=== PATIENT | female | born 1990 | race Caucasian/White ===

== ENCOUNTER 2017-08-16 22:14 | Emergency (ER) | payer BC ==
[2017-08-16] MEDS ORDERED: Lidocaine 1%* 5 ML VIAL INJ ONE (22:40)
--- NOTE | 2017-08-16 22:53 | ED ---
Laceration/Wound HPI - HPI Summary HPI Summary: 26-year-old female presents with left hand laceration today. She cut her hand while doing dishes. She states her immunizations are up-to-date. There is no active severe bleeding. She hasn't taken anything for her pain. She is in minimal amount of pain. She has full range of motion of her hand. She is right -handed. - History of Current Complaint Stated Complaint: LT HAND LAC Time Seen by Provider: 08/16/17 22:27 Hx Last Menstrual Period: now Pain Intensity: 0 - Allergy/Home Medications Allergies/Adverse Reactions: Allergies Allergy/AdvReac Type Severity Reaction Status Date / Time Bee Venom Allergy Unknown Verified 10/21/15 18:48 Reaction Details PMH/Surg Hx/FS Hx/Imm Hx Endocrine/Hematology History: Reports: Hx Diabetes - type 1, dx at age 16 Denies: Hx Thyroid Disease Respiratory History: Reports: Hx Asthma History: Denies: Hx Renal Disease Neurological History: Denies: Hx Seizures - Surgical History Surgery Procedure, Year, and Place: rt knee surgeries X4, appy, wisdom teeth extraction, ankle surgery - Immunization History Date of Tetanus Vaccine: utd Date of Influenza Vaccine: utd Infectious Disease History: No Infectious Disease History: Denies: Traveled Outside the [place] in Last 30 Days - Family History Known Family History: Positive: None - Social History Alcohol Use: Weekly Substance Use Type: Reports: None Smoking Status (MU): Never Smoked Tobacco Review of Systems Negative: Fever Negative: Chest Pain Negative: Shortness Of Breath Positive: Other - laceration left hand All Other Systems Reviewed And Are Negative: Yes Physical Exam Triage Information Reviewed: Yes Vital Signs On Initial Exam: Initial Vitals Temp Pulse Resp BP Pulse Ox 98.7 F 97 16 122/72 100 08/16/17 22:22 08/16/17 22:22 08/16/17 22:22 08/16/17 22:22 08/16/17 22:22 Vital Signs Reviewed: Yes Appearance: Positive: Well-Appearing Skin: Positive: Warm, Dry, Other - 3cm by 1/2cm on left dorsal aspect of left hand Head/Face: Positive: Normal Head/Face Inspection Eyes: Positive: Normal, EOMI, YUE, Conjunctiva Clear Respiratory/Lung Sounds: Positive: Clear to Auscultation, Breath Sounds Present Cardiovascular: Positive: Normal, RRR Musculoskeletal: Positive: Strength/ROM Intact - left hand, Other - good pulses , capillary refill<2 secs Neurological: Positive: Normal Psychiatric: Positive: Normal Procedures - Laceration/Wound Repair 1 Location: Other - left hand Description: Stellate Anesthesia: Local, 1.0% Length, Depth and Shape: 3cm by 1/2cm Betadine Prep?: Yes Irrigated w/ Saline (ccs): 100 Laceration/Wound Explored: clean, no foreign body removed Closure: Single Layer Suture Type: Prolene - 4-0 Number of Sutures: 3 Layer Closure?: No Sterile Dressing Applied?: No Diagnostics - Vital Signs Vital Signs Temp Pulse Resp BP Pulse Ox 08/16/17 22:22 98.7 F 97 16 122/72 100 - Laboratory Lab Statement: Any lab studies that have been ordered have been reviewed, and results considered in the medical decision making process. Laceration Repair Course/Dx - Course Course Of Treatment: 26-year-old female presents with left hand laceration today. She cut her hand while doing dishes. She states her immunizations are up-to-date. There is no active severe bleeding. She hasn't taken anything for her pain. She is in minimal amount of pain. She has full range of motion of her hand. She is right-handed. On exam she has a 3 cm by half a centimeter laceration on the dorsal aspect of the left hand. clean wound and place 3 suture. Patient understands and agrees with plan. - Differential Dx Differental Diagnoses: Abrasion, Avulsion, Laceration - Clinical Impression Provider Diagnoses: Laceration of left hand Discharge - Discharge Plan Condition: Good Disposition: HOME Patient Education Materials: Care For Your Stitches (ED) Referrals: No Primary Care Phys,NOPCP [Primary Care Provider] - Additional Instructions: Take Tylenol or ibuprofen for pain Keep area clean and dry for 24 hours Return to ED or primary in 10-14 days to have sutures removed Return to ED if develop signs of infection such as fever, spreading redness, or pus.
[2017-08-16 23:23] VITALS: BP 110/70
== END 2017-08-16 23:22 | disposition home or self-care (01) ==
LOC: ED 22:14
DX: S61.412A Laceration without foreign body of left hand, initial encounter (principal); W26.0XXA Contact with knife, initial encounter; Y93.G1 Activity, food preparation and clean up; Y92.9 Unspecified place or not applicable
CPT/HCPCS: 12002; 99282

== ENCOUNTER 2017-10-14 14:27 | Emergency (ER) | payer BC ==
[2017-10-14 15:37] LABS: Urine Appearance Clear; Urine Blood Negative (Negative); Urine Color Yellow; Urine Ketones Negative (Negative); Urine Protein 1+(30 mg/dL) (Negative); Urine Specific Gravity 1.008 (1.010-1.030); Urine Urobilinogen Negative (Negative)
[2017-10-14 16:04] LABS: ABS Basophils 0.1 10^3/ul (0-0.2); ABS Eosinophils 0.1 10^3/ul (0-0.6); ABS Lymphocytes 1.4 10^3/ul (1.0-4.8); ABS Monocytes 0.5 10^3/ul (0-0.8); ABS Neutrophils 3.1 10^3/ul (1.5-7.7); ABS Nucleated RBC 0 10^3/ul; Eosinophil % 1.8 % (0-6); Hematocrit 41 % (35-47); Hemoglobin 14.1 g/dl (12.0-16.0); Lymphocyte % 27.3 % (25-47); Mean Corpuscular HGB Conc 34 g/dl (31-36); Mean Corpuscular Hemoglobin 31 pg (27-31); Mean Corpuscular Volume 91 fL (80-97); Mean Platelet Volume 7.3 um3 (7.4-10.4); Nucleated Red Blood Cells % 0; Platelet Count 286 10^3/ul (150-450); Red Blood Count 4.54 10^6/ul (4.0-5.4); Red Cell Distribution Width 13 % (10.5-15); White Blood Count 5.1 10^3/ul (3.5-10.8)
[2017-10-14 17:37] VITALS: BP 130/83
--- NOTE | 2017-10-17 15:05 | ED ---
Scottie Hoffman Stephanie, scribed for Edward Simpson MD on 10/14/17 at 1448 . Psychiatric Complaint - HPI Summary HPI Summary: The pt is a 26 y/o F presenting to the ED with c/o depression that began on 10/12. The pt states she was BIB police due to a phone call possibly by her boss. The pt states she miscarriaged her 34 week old fetus 2 days ago. She denies SI/ HI and states "I am just having a rough time". Per sales promotion officer, the pt called out of work today because she had just had a miscarriage. The officer states he was told that the pt was with twins and lost one of the fetuses a few months ago and fell today and miscarriage the other fetus. 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 - History Of Current Complaint Chief Complaint: EDMentalHealth Time Seen by Provider: 10/14/17 14:35 Hx Obtained From: Patient Hx Last Menstrual Period: now ?: No Onset/Duration: Gradual Onset, Lasting Days - 2, Still Present Timing: Constant Severity Currently: Mild Character: Depressed Aggravating Factor(s): Recent Stress - miscarriage Alleviating Factor(s): Nothing Has Suicidal: Denies: Thoughts Has Homicidal: Denies: Thoughts - Allergies/Home Medications Allergies/Adverse Reactions: Allergies Allergy/AdvReac Type Severity Reaction Status Date / Time bee venom protein (honey bee) Allergy Anaphylatic Verified 10/14/17 14:31 Shock Home Medications: Home Medications Adapalene/Benzoyl Peroxide [Epiduo Forte 0.3-2.5 %] 1 grams TOPICAL DAILY [History Confirmed 10/14/17] Albuterol HFA INHALER* [Ventolin HFA Inhaler*] 1 puff INH Q4H PRN 10/14/17 [ History Confirmed 10/14/17] Cetirizine* [ZyrTEC 10 MG TAB*] 10 mg PO DAILY 10/14/17 [History Confirmed 10/14] DextroAMPHETamine ER (NF) 5 mg PO DAILY MDD 1 tablet 10/14/17 [History Confirmed 10/14/17] Dextroamphetamine ER (NF) 30 mg PO DAILY MDD 1 tablet 10/14/17 [History Confirmed 10/14/17] Fluticasone NASAL SPRAY 50MCG* [Flonase NASAL SPRAY 50MCG*] 2 spray BOTH NARES DAILY 10/14/17 [History Confirmed 10/14/17] Insulin Detemir (NF) [Levemir (NF)] 25 unit SUBCUT QPM 10/14/17 [History Confirmed 10/14/17] Insulin LISPRO* [HumaLOG*] 0 units SUBCUT DIRECTED 10/14/17 [History Confirmed 10/14/17] PMH/Surg Hx/FS Hx/Imm Hx Endocrine/Hematology History: Reports: Hx Diabetes - type 1, dx at age 16 Denies: Hx Thyroid Disease Respiratory History: Reports: Hx Asthma History: Denies: Hx Renal Disease Neurological History: Denies: Hx Seizures - Surgical History Surgery Procedure, Year, and Place: rt knee surgeries X4, appy, wisdom teeth extraction, ankle surgery - Immunization History Date of Tetanus Vaccine: utd Date of Influenza Vaccine: utd Infectious Disease History: No Infectious Disease History: Denies: Traveled Outside the [place] in Last 30 Days - Family History Known Family History: Positive: Unknown - The pt denies all fhx. - Social History Occupation: Employed Part-time Lives: Alone Alcohol Use: Weekly Hx Substance Use: No Substance Use Type: Reports: None Smoking Status (MU): Never Smoked Tobacco Review of Systems Negative: Fever, Chills Negative: Erythema Negative: Sore Throat Negative: Chest Pain Negative: Shortness Of Breath, Cough Negative: Abdominal Pain, Vomiting, Nausea Negative: dysuria, hematuria Negative: Myalgia, Edema Negative: Rash Neurological: Other - Negative: depressed Positive: Depressed All Other Systems Reviewed And Are Negative: Yes Physical Exam - Summary Physical Exam Summary: Constitutional: Well-developed, Well-nourished, Alert. (-) Distressed Skin: Warm, Dry HENT: Normocephalic; Atraumatic Eyes: Conjunctiva normal Neck: Musculoskeletal ROM normal neck. (-) JVD, (-) Stridor, (-) Tracheal deviation Cardio: Rhythm regular, rate normal, Heart sounds normal; Intact distal pulses; The pedal pulses are 2+ and symmetric. Radial pulses are 2+ and symmetric. (-) Murmur Pulmonary/Chest wall: Effort normal. (-) Respiratory distress, (-) Wheezes, (-) Rales Abd: Soft, (-) Tenderness, (-) Distension, (-) Guarding, (-) Rebound Musculoskeletal: (-) Edema Lymph: (-) Cervical adenopathy Neuro: Alert, Oriented x3 Psych: Affect somewhat flat Triage Information Reviewed: Yes Vital Signs On Initial Exam: Initial Vitals Temp Pulse Resp BP Pulse Ox 98.0 F 107 16 123/79 98 10/14/17 14:31 10/14/17 14:31 10/14/17 14:31 10/14/17 14:31 10/14/17 14:31 Vital Signs Reviewed: Yes Diagnostics - Vital Signs Vital Signs Temp Pulse Resp BP Pulse Ox 10/14/17 14:31 98.0 F 107 16 123/79 98 - Laboratory Lab Results: Lab Results 10/14/17 10/14/17 10/14/17 Range/Units 15:00 15:00 15:57 WBC (3.5-10.8) 10^3/ul RBC (4.0-5.4) 10^6/ul Hgb (12.0-16.0) g/dl Hct (35-47) % MCV (80-97) fL MCH (27-31) pg MCHC (31-36) g/dl RDW (10.5-15) % Plt Count (150-450) 10^3/ul MPV (7.4-10.4) um3 Neut % (Auto) (38-83) % Lymph % (Auto) (25-47) % Bracken % (Auto) (0-7) % Eos % (Auto) (0-6) % Baso % (Auto) (0-2) % Absolute Neuts (auto) (1.5-7.7) 10^3/ul Absolute Lymphs (auto) (1.0-4.8) 10^3/ul Absolute Monos (auto) (0-0.8) 10^3/ul Absolute Eos (auto) (0-0.6) 10^3/ul Absolute Basos (auto) (0-0.2) 10^3/ul Absolute Nucleated RBC 10^3/ul Nucleated RBC % Sodium 138 L (139-145) mmol/L Potassium 4.5 (3.5-5.0) mmol/L Chloride 104 (101-111) mmol/L Carbon Dioxide 24 (22-32) mmol/L Anion Gap 10 (2-11) mmol/L BUN 7 (6-24) mg/dL Creatinine 0.82 (0.51-0.95) mg/dL Est GFR ( Amer) 106.8 (>60) Est GFR (Non-Af Amer) 83.0 (>60) BUN/Creatinine Ratio 8.5 (8-20) Glucose 91 (70-100) mg/dL Calcium 9.7 (8.6-10.3) mg/dL Total Bilirubin 0.50 (0.2-1.0) mg/dL AST 16 (13-39) U/L ALT 14 (7-52) U/L Alkaline Phosphatase 51 (34-104) U/L Total Protein 7.7 (6.4-8.9) g/dL Albumin 4.3 (3.2-5.2) g/dL Globulin 3.4 (2-4) g/dL Albumin/Globulin Ratio 1.3 (1-3) TSH 1.62 (0.34-5.60) mcIU/mL Beta HCG, Quant < 0.60 mIU/mL Urine Color Yellow Urine Appearance Clear Urine pH 6.0 (5-9) Ur Specific [place] 1.008 L (1.010-1.030) Urine Protein 1+(30 mg/dl) A (Negative) Urine Ketones Negative (Negative) Urine Blood Negative (Negative) Urine Nitrate Negative (Negative) Urine Bilirubin Negative (Negative) Urine Urobilinogen Negative (Negative) Ur Leukocyte Esterase Negative (Negative) Urine WBC (Auto) Trace(0-5/hpf) (Absent) Urine RBC (Auto) Absent (Absent) Ur Squamous Epith Cells Present A (Absent) Urine Bacteria 1+ A (Absent) Urine Glucose Negative (Negative) Salicylates < 2.50 (<30) mg/dL Urine Opiates Screen None detected (None Detect) Acetaminophen < 15 mcg/mL Ur Barbiturates Screen None detected (None Detect) Ur Phencyclidine Scrn None detected (None Detect) Ur Amphetamines Screen Presumptive positive A (None Detect) U Benzodiazepines Scrn None detected (None Detect) Urine Cocaine Screen None detected (None Detect) U Cannabinoids Screen None detected (None Detect) Serum Alcohol 42 H (<10) mg/dL 03/27/18 Range/Units 15:57 WBC 5.1 (3.5-10.8) 10^3/ul RBC 4.54 (4.0-5.4) 10^6/ul Hgb 14.1 (12.0-16.0) g/dl Hct 41 (35-47) % MCV 91 (80-97) fL MCH 31 (27-31) pg MCHC 34 (31-36) g/dl RDW 13 (10.5-15) % Plt Count 286 (150-450) 10^3/ul MPV 7.3 L (7.4-10.4) um3 Neut % (Auto) 60.0 (38-83) % Lymph % (Auto) 27.3 (25-47) % Bracken % (Auto) 9.7 H (0-7) % Eos % (Auto) 1.8 (0-6) % Baso % (Auto) 1.2 (0-2) % Absolute Neuts (auto) 3.1 (1.5-7.7) 10^3/ul Absolute Lymphs (auto) 1.4 (1.0-4.8) 10^3/ul Absolute Monos (auto) 0.5 (0-0.8) 10^3/ul Absolute Eos (auto) 0.1 (0-0.6) 10^3/ul Absolute Basos (auto) 0.1 (0-0.2) 10^3/ul Absolute Nucleated RBC 0 10^3/ul Nucleated RBC % 0 Sodium (139-145) mmol/L Potassium (3.5-5.0) mmol/L Chloride (101-111) mmol/L Carbon Dioxide (22-32) mmol/L Anion Gap (2-11) mmol/L BUN (6-24) mg/dL Creatinine (0.51-0.95) mg/dL Est GFR ( Amer) (>60) Est GFR (Non-Af Amer) (>60) BUN/Creatinine Ratio (8-20) Glucose (70-100) mg/dL Calcium (8.6-10.3) mg/dL Total Bilirubin (0.2-1.0) mg/dL AST (13-39) U/L ALT (7-52) U/L Alkaline Phosphatase (34-104) U/L Total Protein (6.4-8.9) g/dL Albumin (3.2-5.2) g/dL Globulin (2-4) g/dL Albumin/Globulin Ratio (1-3) TSH (0.34-5.60) mcIU/mL Beta HCG, Quant mIU/mL Urine Color Urine Appearance Urine pH (5-9) Ur Specific [place] (1.010-1.030) Urine Protein (Negative) Urine Ketones (Negative) Urine Blood (Negative) Urine Nitrate (Negative) Urine Bilirubin (Negative) Urine Urobilinogen (Negative) Ur Leukocyte Esterase (Negative) Urine WBC (Auto) (Absent) Urine RBC (Auto) (Absent) Ur Squamous Epith Cells (Absent) Urine Bacteria (Absent) Urine Glucose (Negative) Salicylates (<30) mg/dL Urine Opiates Screen (None Detect) Acetaminophen mcg/mL Ur Barbiturates Screen (None Detect) Ur Phencyclidine Scrn (None Detect) Ur Amphetamines Screen (None Detect) U Benzodiazepines Scrn (None Detect) Urine Cocaine Screen (None Detect) U Cannabinoids Screen (None Detect) Serum Alcohol (<10) mg/dL Result Diagrams: 10/14/17 15:57 10/14/17 15:57 Lab Statement: Any lab studies that have been ordered have been reviewed, and results considered in the medical decision making process. Course/Dx - Course Course Of Treatment: The pt will undergo MHE. There is no evidence of peripartum complication or active bleeding. The patient's history of recent miscarriage is variable and hard to follow, telling me that she miscarried two weeks ago, then also referring to two days ago. - Differential Dx/Clinical Impression Provider Diagnosis: Grief reaction Discharge - Sign-Out/Discharge Documenting (check all that apply): Discharge - Discharge Plan Condition: Stable Disposition: HOME Patient Education Materials: Depression (ED), Grief and Loss (ED) Referrals: family,childrens [Other] (please follow up with therapy services as soon as possible. ) Kerri Mack CATH LAB MANAGER [Nurse Practitioner] - Additional Instructions: RETURN TO THE EMERGENCY DEPARTMENT FOR CHANGING OR WORSENING SYMPTOMS. - Billing Disposition and Condition Condition: STABLE Disposition: HOME The documentation as recorded by the Scottie aguilar Stephanie accurately reflects the service I personally performed and the decisions made by me, Edward Simpson MD.
== END 2017-10-14 17:39 | disposition home or self-care (01) ==
LOC: SUPCPDRO 14:27 → ED 14:27
DX: F43.21 Adjustment disorder with depressed mood (principal); Z32.02 Encounter for pregnancy test, result negative; E10.9 Type 1 diabetes mellitus without complications; Z79.4 Long term (current) use of insulin; J45.909 Unspecified asthma, uncomplicated
CPT/HCPCS: 36415; 80053; 80307; 80320; 80329; 81003; 81015; 84443; 84702; 85025; 87086; 99284; G0480

== ENCOUNTER 2018-01-29 18:47 | Inpatient (IN) | payer BC ==
[2018-01-29] MEDS ORDERED: Albuterol (2.5 MG) 0.5 % CONC 2.5 MG/0.5 ML NEB.SOLN (ICU and ED only) INH ONE (18:56)
[2018-01-29] MEDS ORDERED: EPINEPHrine,Rac 2.25% NEB.SOL* 0.5 ML ONE (18:56)
[2018-01-29] MEDS ORDERED: Albuterol 2.5 MG/3 ML NEB.SOL* (0.083%) INH ONE ×2 (18:57→19:40)
[2018-01-29] MEDS ORDERED: EPHEDrine (Pressors)* 50 MG/ML VIAL ONE (19:06)
[2018-01-29] MEDS ORDERED: EPINEPHRINE 1 MG/ML 1 ML VIAL ONE (19:06)
[2018-01-29] MEDS ORDERED: EPINEPHrine SYR 0.1 MG/ML* (1:10,000) SYRINGE ONE (19:07)
--- NOTE | 2018-01-29 19:09 | ED ---
Allergic Reaction/Systemic - HPI Summary HPI Summary: Pt is a 27 y/o F presenting w/ an allergic reaction to a bee sting. While grabbing her the leash of her roommate's dog from a [place]avez, she was stung just above her right wrist. Per triage, this occurred around 13 minutes prior to arrival at hospital. Pt gave herself an epi pen but is still having stridor in the room. She denies the presence of hives and abdominal pain. - History of Current Complaint Chief Complaint: EDAllergicReaction Hx Obtained From: Patient Hx Last Menstrual Period: now Onset/Duration: Sudden Onset, Started minutes ago, Still Present Timing: Constant - Allergies/Home Medications Allergies/Adverse Reactions: Allergies Allergy/AdvReac Type Severity Reaction Status Date / Time bee venom protein (honey bee) Allergy Anaphylatic Verified 10/14/17 14:31 Shock PMH/Surg Hx/FS Hx/Imm Hx Endocrine/Hematology History: Reports: Hx Diabetes - type 1, dx at age 16 Denies: Hx Thyroid Disease Respiratory History: Reports: Hx Asthma History: Denies: Hx Renal Disease Neurological History: Denies: Hx Seizures Psychiatric History: Reports: Hx Eating Disorder - anorexic age [age] Denies: Hx of Violent Episodes Against Others - Surgical History Surgery Procedure, Year, and Place: rt knee surgeries X4, appy, wisdom teeth extraction, ankle surgery - Immunization History Date of Tetanus Vaccine: utd Date of Influenza Vaccine: utd Infectious Disease History: No Infectious Disease History: Denies: Traveled Outside the [place] in Last 30 Days - Family History Known Family History: Positive: None, Unknown - The pt denies all fhx. - Social History Alcohol Use: Weekly Hx Substance Use: No Substance Use Type: Reports: None Substance Use Comment - Amount & Last Used: adderal Smoking Status (MU): Never Smoked Tobacco Discharge - Discharge Plan Referrals: No Primary Care Phys,NOPCP [Primary Care Provider] -
[2018-01-29] MEDS ORDERED: EPINEPHrine AMP 1 MG/ML* 1 MG in D5W 250 ML BAG* 250 ML IVPB SCH (19:15)
--- NOTE | 2018-01-29 19:22 | ED ---
Allergic Reaction/Systemic - HPI Summary HPI Summary: Pt is a 27 y/o F presenting w/ an allergic reaction to a bee sting. While grabbing the leash of her roommate's dog from a [place], she was stung just above her right wrist. Per triage, this occurred around 13 minutes prior to arrival at hospital. Pt gave herself an epi pen but is still having stridor in the room. She notes that she has had similar reactions to bee stings previously and to her recollection the most recent episode was around a decade ago. Bruising is present on face across bridge of nose and jaw line. Pt currently denies the presence of hives and abdominal pain. Circular bruising is present on her back but pt believes this is from cupping therapy. - History of Current Complaint Chief Complaint: EDAllergicReaction Hx Obtained From: Patient Hx Last Menstrual Period: now Onset/Duration: Sudden Onset, Started minutes ago - per triage, 13 minutes prior to arrival, Still Present Timing: Constant Associated Signs And Symptoms: Positive: Difficulty Breathing, Other: - POSITIVE : Circular bruises on back, pt believes from cupping therapy. Bruising is present on face across bridge of nose and jaw line. NEGATIVE: hives. Negative: Abdominal Pain - Related Hx Possible Reaction To: Insect - bee sting - Allergies/Home Medications Allergies/Adverse Reactions: Allergies Allergy/AdvReac Type Severity Reaction Status Date / Time bee venom protein (honey bee) Allergy Anaphylatic Verified 10/14/17 14:31 Shock Home Medications: Home Medications Albuterol inh POWDER (NF) [Proair Respiclick] 1 puff INH Q4HR PRN 01/29/18 [ History Confirmed 01/29/18] Escitalopram (NF) [Lexapro 10 mg (NF)] 10 mg PO DAILY 01/29/18 [History Confirmed 01/29/18] Montelukast Sodium TAB* [Singulair TAB*] 10 mg PO DAILY 01/29/18 [History Confirmed 01/29/18] PMH/Surg Hx/FS Hx/Imm Hx Endocrine/Hematology History: Reports: Hx Diabetes - type 1, dx at age 16 Denies: Hx Thyroid Disease Respiratory History: Reports: Hx Asthma History: Denies: Hx Renal Disease Neurological History: Denies: Hx Seizures Psychiatric History: Reports: Hx Eating Disorder - anorexic age [age] Denies: Hx of Violent Episodes Against Others - Surgical History Surgery Procedure, Year, and Place: rt knee surgeries X4, appy, wisdom teeth extraction, ankle surgery - Immunization History Date of Tetanus Vaccine: utd Date of Influenza Vaccine: utd Infectious Disease History: No Infectious Disease History: Denies: Traveled Outside the [place] in Last 30 Days - Family History Known Family History: Positive: None, Unknown - The pt denies all fhx. Negative: Blood Disorder - Social History Alcohol Use: Weekly Hx Substance Use: No Substance Use Type: Reports: None Substance Use Comment - Amount & Last Used: adderal Smoking Status (MU): Never Smoked Tobacco Review of Systems Positive: Shortness Of Breath Negative: Abdominal Pain Positive: Bruising - Bruising is present on face across bridge of nose and jaw line. Circular bruises on back, pt believes from cupping therapy, Other - NEGATIVE: hives All Other Systems Reviewed And Are Negative: Yes Physical Exam - Summary Physical Exam Summary: Appearance: Well developed, well nourished white female lying on the stretcher in respiratory distress with audible stridor. Skin: Warm, dry, no obvious rash, no significant local reaction at the site of the sting. Eyes: sclera anicteric, no conjunctival pallor ENT: mucous membranes moist, pharynx appears normal, there is no swelling about the face or visible pharynx. There is periorbital bruising which pt says is from a rugby match. Neck: Supple, nontender Respiratory: Experiencing stridor and suprasternal retractions. no wheezing. Cardiovascular: Normal S1, S2. No murmurs. Normal distal pulses in tibial and radial bilaterally. Abdomen: Soft, nontender, normal active bowel sounds present Musculoskeletal: Normal, Strength/ROM Intact Neurological: A&Ox3, awake and alert, mentation is normal, speech is fluent and appropriate Psychiatric: affect is normal, does not appear anxious or depressed. She actually is tolerating her distress in good spirits, able to make jokes with staff and her roommate. Triage Information Reviewed: Yes Vital Signs On Initial Exam: Initial Vitals Pulse Resp BP Pulse Ox 99 40 133/86 99 01/29/18 18:55 01/29/18 18:55 01/29/18 18:55 01/29/18 18:55 Vital Signs Reviewed: Yes Diagnostics - Vital Signs Vital Signs Pulse Resp BP Pulse Ox 01/29/18 19:16 99 20 134/87 100 01/29/18 19:00 104 23 100 01/29/18 18:55 99 40 133/86 99 - Laboratory Result Diagrams: 01/29/18 20:07 01/29/18 20:07 Lab Statement: Any lab studies that have been ordered have been reviewed, and results considered in the medical decision making process. - EKG 2030 Cardiac Rate: Tachycardia EKG Rhythm: Sinus Tachycardia EKG Interpretation: Rate of 100 BPM; ST 100, otherwise normal. Allergic Reaction Course/Dx - Diagnoses Differential Diagnosis/HQI/PQRI: Positive: Airway Obstruction, Anaphylaxis, Bronchospasm Provider Diagnoses: Anaphylaxis due to hymenoptera venom - Provider Notifications Discussed Care Of Patient With: Rai Hopkins Time Discussed With Above Provider: 20:04 Instructed by Provider To: Admit As Inpatient - Critical Care Time Critical Care Time: 30-74 min - Pt presented with respiratory distress due to allergic reaction to wasp sting. She was markedly stridorous and required multiple parenteral medications to stabilize her condition, including IV epinephrine. Discharge - Sign-Out/Discharge Documenting (check all that apply): Patient Departure - Discharge Plan Condition: Guarded Disposition: ADMITTED TO [facility] - Billing Disposition and Condition Condition: GUARDED Disposition: Admitted to [facility]
[2018-01-29] MEDS ORDERED: EPINEPHrine AMP 1 MG/ML IM PRN (19:40)
[2018-01-29] MEDS ORDERED: methylPREDNISolone 125 MG* 2 ML VIAL IV ONE (19:40)
[2018-01-29] MEDS ORDERED: NS 0.9% 1000 ML* 3,000 ML IV ONE (19:40)
[2018-01-29] MEDS ORDERED: diPHENhydraMINE IV* 50 MG/ML 1 ml VIAL (BENADRYL) IV ONE (19:40)
[2018-01-29] MEDS ORDERED: EPINEPHrine,Rac 2.25% NEB.SOL* 0.5 ML INH ONE ×2 (19:44→21:05)
--- OUTSIDE RECORDS SUMMARY | 2018-01-29 20:11 | XMS REPORT ---
:1990 External Reference #:[id number] Author Organization [facility] Address [address] [place] [address] Phone [phone] Care Team Providers Name Role Phone Kerri Mack NP Care Team Information Javascript Developer Unavailable Payers Type Date Identification Numbers Payment Provider Subscriber Commercial Effective: Policy Number: [employer] Sarah Camacho 2016 [id number] Group Name: [employer] [address] [address] PayID: [id number] [place] [address] Problems Description No Information Family History Date Family Member(s) Problem(s) Comments Father trach and feeding tube Father Cancer, Throat In remission Mother Osteoporosis Paternal Grandfather due to AR () - in 50s Paternal Grandmother due to CHF (Congestive () - in her 80s. Failure) Morbid obesity Maternal Grandfather due to Cancer, Lung () - Smoker Maternal Grandmother due to Cancer, Ovarian () - In early 60s Aunt Cancer, Colon Social History Type Date Description Comments Lives With Roommate Sleep Typically sleeps 7 hours a night Sleep Reports continuity disturbances Smoke-Free Home is smoke-free Occupation Pediatric PT in [employer] Cigarette Use Never Smoked Cigarettes Recreational Drug Use Denies Drug Use Daily Caffeine Consumes on average 2 cups of coffee per day Enjoy Exercising Enjoys exercising Guns in Home No Currently Active Patient is currently sexually active Condom Use Always STD's No STD History Allergies, Adverse Reactions, Alerts Date Description Reaction Status Severity Comments 01/06/2017 Bee Sting active 10/03/2017 Cat Dander active Medications Medication Date Status Form Strength Qnty SIG Indications Ordering Provider Asmanex HFA 01/09 Active Aerosol 100mcg/Ac 13gm inhale 2 puffs t by mouth 2 Shortle, times per day BUDGET ENGINEER while ill Proair HFA 11/11 Active Aerosol 108(90Bas 8.500 2 puffs as J45.998 e) gm needed every 4 Shortle, mcg/Act to 6 hrs. BUDGET ENGINEER Lexapro 11/11 Active Tablets 10mg 30tab 1/2 tab by F41.9 s mouth daily for R. Storm, one week. then CREDIT ANALYSIS MANAGER-C 1 tab by mouth daily Epipen 2-Ti 02/04 Active Solution 0.3mg/0.3 2Pack use as directed Auto-Inject ML LAKSHMI Her-C Epinephrine 02/04 Active Solution 0.3mg/0.3 2unit inject at onset Auto-Inject ML s of allergic Taina reaction, then CREDIT ANALYSIS MANAGER-C go to the er Levemir 01/10 Active Solution 100Unit/M 30ml inject 15 units Joanna Flextouch Pen-Inject L qd LAKSHMI Her-C Adderall XR 01/06 Active Caps ER 30mg 30cap 1 by mouth 24HR s daily for add R. Storm, CREDIT ANALYSIS MANAGER-C Adderall XR 01/06 Active Caps ER 5mg 30cap 1 by mouth 24HR s every day for R. Storm, adhd CREDIT ANALYSIS MANAGER-C Zyrtec 01/06 Active Capsules 10mg 1 po qd Allergy LIYAH HerP-C Fluticasone 01/06 Active Suspension 50mcg/Act 48gm 2 sprays each Joanna Propionate nostril daily LIYAH HerP-C Albuterol 01/06 Active Nebulizer (2.5mg/3M 75uni inhale the Sulfate L) 0.083% ts contents of 1 Taina vial via CREDIT ANALYSIS MANAGER-C nebulizer every 4 to 6 hours as needed for wheezing Novolog 01/06 Active Solution 100Unit/M 1box use per carb Joanna Flexpen Pen-Inject L ratio 1unit for Taina, 11 grams CREDIT ANALYSIS MANAGER-C correction factor under the skin three times a day per sliding scale. Singulair 01/06 Active Tablets 10mg 30tab 1 by mouth s every day LOUIE Mack Epiduo Forte 01/06 Active Gel 0.3-2.5% 45gm apply once daily to skin Taina [facility] Acticlate 01/06 Active Tablets 75mg 30tab 1 tab by mouth s every day LOUIE Mack Flovent HFA 01/09 Hx Aerosol 110mcg/Ac 12gm inhale twice t daily while [place], - having BUDGET ENGINEER 01/09 exacerbation Ranitidine 03/12 Hx Tablets 150mg 60tab take one tablet L50.8 Joanna HCL s by mouth twice Taian, - a day as [facility] 10/03 directed for acid reflux Trazodone 01/10 Hx Tablets 50mg 60tab take one to two Joanna HCL s tablets by Taina, - mouth at [facility] 01/05 bedtime Levemir 01/10 Hx Solution 100Unit/M inject Joanna Pen-Inject L subcutaneously Taina, - 15 units daily [facility] 01/10 Breo Ellipta 01/06 Hx Aerosol 200-25mcg 60uni inhale 1 puff /Inh ts by mouth every Taina, - day - rinse [facility] 10/03 mouth after Levemir 01/06 Hx Solution 100Unit/M 15ml 25 units in at L night Taina, - CREDIT ANALYSIS MANAGER-C 01/10 Trazodone 01/06 Hx Tablets 100mg Joanna HCL /2016 Taina, - CREDIT ANALYSIS MANAGER-C 01/10 Medications Administered in Office Medication Date Status Form Strength Qnty SIG Indications Ordering Provider TB,Intradermal Administered Injection Kerri (PPD, Mantoux) 018 LOUIE Mack Immunizations CPT Code Status Date Vaccine Lot # [id number] Given 01/05/2018 MMR (Measles,Mumps,Rubella) [id number] Given 12/02/2017 MMR (Measles,Mumps,Rubella) [id number] Given 08/01/2017 Influenza Virus Vaccine, Quadrivalent, 3 Yr > Quad, Preserv Free [id number] Given 01/07/2016 Pneumovax 23 (PPSV23) 65+ years or high risk 2 to 64 year old Vital Signs Date Vital Result Comment 01/06/2018 Weight 151.00 lb Weight in kg's 68.494 BP Systolic 112 mmHg BP Diastolic 80 mmHg Heart Rate 102 /min Body Temperature 97.4 F Respiratory Rate 12 /min O2 % BldC Oximetry 98 % 01/05/2018 Weight 151.00 lb Weight in kg's 68.494 BP Systolic 118 mmHg BP Diastolic 78 mmHg Heart Rate 100 /min Body Temperature 97.4 F Respiratory Rate 18 /min O2 % BldC Oximetry 99 % 11/25/2017 Weight 146.00 lb Weight in kg's 66.226 BP Systolic 116 mmHg BP Diastolic 78 mmHg Heart Rate 91 /min Body Temperature 97.5 F Respiratory Rate 16 /min O2 % BldC Oximetry 98 % 11/11/2017 Weight 146.00 lb Weight in kg's 66.226 BP Systolic 102 mmHg BP Diastolic 60 mmHg Heart Rate 96 /min Body Temperature 97.3 F Respiratory Rate 16 /min 11/04/2017 Weight 146.00 lb Weight in kg's 66.226 BP Systolic 110 mmHg BP Diastolic 74 mmHg Heart Rate 104 /min Body Temperature 97.0 F Respiratory Rate 16 /min Height 65 inches 5'5" BMI (Body Mass Index) 24.3 kg/m2 10/03/2017 Weight 146.12 lb Weight in kg's 66.282 BP Systolic 130 mmHg BP Diastolic 70 mmHg Heart Rate 74 /min Body Temperature 97.6 F Respiratory Rate 16 /min O2 % BldC Oximetry 99 % 03/12/2017 Weight 153.00 lb Weight in kg's 69.401 BP Systolic 94 mmHg BP Diastolic 62 mmHg Heart Rate 81 /min Body Temperature 97.8 F Respiratory Rate 16 /min O2 % BldC Oximetry 98 % 02/04/2017 Weight 149.00 lb Weight in kg's 67.586 BP Systolic 100 mmHg BP Diastolic 70 mmHg Heart Rate 92 /min Body Temperature 98.2 F Height 65 inches 5'5" BMI (Body Mass Index) 24.8 kg/m2 01/06/2017 Weight 150.00 lb Weight in kg's 68.040 BP Systolic 100 mmHg BP Diastolic 60 mmHg Heart Rate 88 /min Height 65 inches 5'5" BMI (Body Mass Index) 25.0 kg/m2 Results Test Date Test Result H/L Range Note CBC Auto Diff 11/06/2017 White Blood Count 5.1 10^3/uL 3.5-10.8 Red Blood Count 4.42 10^6/uL 4.0-5.4 Hemoglobin 14.0 g/dL 12.0-16.0 Hematocrit 41 % 35-47 Mean Corpuscular Volume 94 fL 80-97 Mean Corpuscular Hemoglobin 32 pg High 27-31 Mean Corpuscular HGB Conc 34 g/dL 31-36 Red Cell Distribution Width 14 % 10.5-15 Platelet Count 312 10^3/uL 150-450 Mean Platelet Volume 7.8 um3 7.4-10.4 Abs Neutrophils 3.4 10^3/uL 1.5-7.7 Abs Lymphocytes 1.2 10^3/uL 1.0-4.8 Abs Monocytes 0.5 10^3/uL 0-0.8 Abs Eosinophils 0.1 10^3/uL 0-0.6 Abs Basophils 0 10^3/uL 0-0.2 Abs Nucleated RBC 0 10^3/uL Granulocyte % 65.5 % 38-83 Lymphocyte % 22.8 % Low 25-47 Monocyte % 9.7 % High 0-7 Eosinophil % 1.5 % 0-6 Basophil % 0.5 % 0-2 Nucleated Red Blood Cells % 0 Comp Metabolic Panel 11/06/2017 Sodium 137 mmol/L Low 139-145 Potassium 4.4 mmol/L 3.5-5.0 Chloride 101 mmol/L 101-111 Co2 Carbon Dioxide 28 mmol/L 22-32 Anion Gap 8 mmol/L 2-11 Glucose 104 mg/dL High 70-100 Blood Urea Nitrogen 16 mg/dL 6-24 Creatinine 0.79 mg/dL 0.51-0.95 BUN/Creatinine Ratio 20.3 High 8-20 Calcium 9.7 mg/dL 8.6-10.3 Total Protein 7.6 g/dL 6.4-8.9 Albumin 4.2 g/dL 3.2-5.2 Globulin 3.4 g/dL 2-4 Albumin/Globulin Ratio 1.2 1-3 Total Bilirubin 0.60 mg/dL 0.2-1.0 Alkaline Phosphatase 54 U/L 34-104 Alt 17 U/L 7-52 Ast 14 U/L 13-39 Egfr Non- 86.7 >60 Egfr 111.4 >60 1 Lipid Profile (Trig/Chol/HDL) 11/06/2017 Triglycerides 118 mg/dL 2 Cholesterol 216 mg/dL 3 HDL Cholesterol 73.4 mg/dL 4 LDL Cholesterol 119 mg/dL 5 Laboratory test finding 11/06/2017 Hemoglobin A1c (Glyco HGB) 4.7 % 4.0- 5.6 6 Mumps Igg 11/06/2017 Mumps Virus IgG Antibody Negative 7 Mumps IgG Antibody Index 0.8 8 Rubeola Measles Igg AB 11/06/2017 Rubeola (Measles) IgG Antibody Positive 9 Rubeola IgG Antibody Index 1.7 10 Laboratory test finding 11/06/2017 Rubella Screen Immune Immune 11 Hepatitis B Arnie AB Titer 11/06/2017 Hepatitis B Surface AB Immune Immune Hep B Surf AB Level > 1000.00 mIU/mL >12 Urine Microalbumin Random 11/04/2017 Ur Microalbumin (mg/L) < 15.0 mg/L Urine Creatinine 177.94 mg/dL Urine Microalbumin/Creatinine TNP ug/mg <31 12 Urine Culture And Sensitivities 10/14/2017 Urine Culture SEE RESULT BELOW 13 Urinalysis Profile 10/14/2017 Urine Color Yellow Urine Appearance Clear Urine Specific Raymond 1.008 Low 1.010-1.030 Urine pH 6.0 5-9 Urine Urobilinogen Negative Negative Urine Ketones Negative Negative Urine Protein 1+(30 mg/dL) Negative Urine Leukocytes Negative Negative Urine Blood Negative Negative Urine Nitrite Negative Negative Urine Bilirubin Negative Negative Urine Glucose Negative Negative Urine White Blood Cell Trace(0-5/hpf) Absent Urine Red Blood Cell Absent Absent Urine Bacteria 1+ Absent Urine Squamous Epithelial Cell Present Absent Urine Drug SCR 10/14/2017 Amphetamine Ur Screen Presumptive Posi None Detect 14 [facility] <SEE NOTE> Barbiturates Urine Screen None Detected None Detect Benzodiazepine Urine Screen None Detected None Detect Urine Cannabinoids Screen None Detected None Detect Urine Cocaine Screen None Detected None Detect Urine Opiates Screen None Detected None Detect Urine Phencyclidine Screen None Detected None Detect 15 CBC Auto Diff 03/12/2017 White Blood Count 7.2 10^3/uL 3.5-10.8 Red Blood Count 4.57 10^6/uL 4.0-5.4 Hemoglobin 14.2 g/dL 12.0-16.0 Hematocrit 42 % 35-47 Mean Corpuscular Volume 93 fL 80-97 Mean Corpuscular Hemoglobin 31 pg 27-31 Mean Corpuscular HGB Conc 34 g/dL 31-36 Red Cell Distribution Width 15 % 10.5-15 Platelet Count 303 10^3/uL 150-450 Mean Platelet Volume 8 um3 7.4-10.4 Abs Neutrophils 5.0 10^3/uL 1.5-7.7 Abs Lymphocytes 1.6 10^3/uL 1.0-4.8 Abs Monocytes 0.5 10^3/uL 0-0.8 Abs Eosinophils 0.1 10^3/uL 0-0.6 Abs Basophils 0 10^3/uL 0-0.2 Abs Nucleated RBC 0.01 10^3/uL Granulocyte % 69.0 % 38-83 Lymphocyte % 22.0 % Low 25-47 Monocyte % 7.4 % 1-9 Eosinophil % 1.1 % 0-6 Basophil % 0.5 % 0-2 Nucleated Red Blood Cells % 0.1 Comp Metabolic Panel 03/12/2017 Sodium 138 mmol/L 133-145 Potassium 4.7 mmol/L 3.5-5.0 Chloride 105 mmol/L 101-111 Co2 Carbon Dioxide 28 mmol/L 22-32 Anion Gap 5 mmol/L 2-11 Glucose 88 mg/dL 70-100 Blood Urea Nitrogen 10 mg/dL 6-24 Creatinine 0.80 mg/dL 0.51-0.95 BUN/Creatinine Ratio 12.5 8-20 Calcium 10.2 mg/dL 8.6-10.3 Total Protein 7.5 g/dL 6.4-8.9 Albumin 4.5 g/dL 3.2-5.2 Globulin 3.0 g/dL 2-4 Albumin/Globulin Ratio 1.5 1-3 Total Bilirubin 0.40 mg/dL 0.2-1.0 Alkaline Phosphatase 63 U/L 34-104 Alt 14 U/L 7-52 Ast 16 U/L 13-39 Egfr Non- 85.4 >60 Egfr 109.8 >60 16 Lyme Western Blot 03/12/2017 Lyme Disease IgG Ab WB Negative Negative Lyme Disease IgG Bands Present p93, p58, p41, kDa Lyme Disease IgM Ab WB Negative Negative Lyme Disease IgM Bands Present p41, kDa Lyme Disease Interpretation See Comment 17 Laboratory test finding 03/12/2017 Erythrocyte Sed Rate 16 mm/Hr High 0- 14 18 C Reactive Protein 3.88 mg/L < 5.00 19 Cyclic Citrullinated Pep Igg TNP () 20 Connective Tissue Panel 03/12/2017 Anti-Nuclear Antibody 0.4 U 21 Cyclic Citrullinated Peptide <15.6 U 22 Interpretation See Comment 23 Laboratory test finding 01/06/2017 Hemoglobin A1c (Glyco 5.1 % Less than 6.0 24 HGB) 1 Because ethnic data is not always readily available, this report includes an eGFR for both -Americans and non- Americans. The National Kidney Disease Education Program (NKDEP) does not endorse the use of the MDRD equation for patients that are not between the ages of 18 and 70, are , have extremes of body size, muscle mass, or nutritional status, or are non- or non-. According to the National Kidney Foundation, irrespective of diagnosis, the stage of the disease is based on the level of kidney function: Stage Description GFR(mL/min/1.73 m(2)) 1 Kidney damage with normal or decreased GFR 90 2 Kidney damage with mild decrease in GFR 60-89 3 Moderate decrease in GFR 30-59 4 Severe decrease in GFR 15-29 5 Kidney failure <15 (or dialysis) 2 Desirable: <150 Borderline High: 150-199 High: 200-499 Very High: >500 3 Desirable: <200 Borderline High: 200-239 High: >239 4 Low: <40 Desirable: 40-60 High: >60 5 Desirable: <100 Near Optimal: 100-129 Borderline High: 130-159 High: 160-189 Very High: >189 6 Therapeutic target for the treatment of diabetes mellitus patients is <7% HBA1C, and in selective patients <6.0%. Please refer to [place] [employer] Association diabetic care guidelines for further information. 7 REFERENCE VALUE Vaccinated: Positive (>=1.1 AI) Unvaccinated: Negative (<=0.8 AI) 8 Test Performed by: [facility] [address] [place] [id number] 9 Results suggest response to immunization or prior exposure to the virus. REFERENCE VALUE Vaccinated: Positive (>=1.1 AI) Unvaccinated: Negative (<=0.8 AI) 10 Test Performed by: [facility] [address] [place] [address] 11 [id number] FASTING 12 Unable to calculate due to low microalbumin 13 SEE RESULT BELOW Name: WILDSARAH S : [address]: Edward Simpson MD Acct: [id number] Unit: [id number] AGE: 26 Location: ED Re10/14/17 SEX: F Status: DEP ER SPEC: [id number] RUBI: 10/14/17-1499 [facility] DR: Edward Simpson MD REQ: [id number] RECD: 10/14/17 STATUS: MINA CERVANTES DR: Kerri Mack BUDGET ENGINEER _ [facility] Urine Culture Procedure Result Reported Site Urine Culture Final 10/16/17- 818 ML No Growth (<1,000 CFU/mL) * ML - Main Lab . END OF REPORT DEPARTMENT OF PATHOLOGY, [address] [place] [address] Skip Paula M.D. Director [facility] # [id number] 14 Presumptive Positive Presumptive positive results are unconfirmed. 15 The urine specimen was tested at the listed cutoffs: Drug class test level (ng/mL) Amphetamines 500 Barbiturates 200 Benzodiazepine metabolites 200 Cocaine metabolites 150 Cannabinoids 50 Opiates 300 Pcp 25 Specimen was received without chain of custody. Results should be used for medical purposes only. 16 Because ethnic data is not always readily available, this report includes an eGFR for both -Americans and non- Americans. The National Kidney Disease Education Program (NKDEP) does not endorse the use of the MDRD equation for patients that are not between the ages of 18 and 70, are , have extremes of body size, muscle mass, or nutritional status, or are non- or non-. According to the National Kidney Foundation, irrespective of diagnosis, the stage of the disease is based on the level of kidney function: Stage Description GFR(mL/min/1.73 m(2)) 1 Kidney damage with normal or decreased GFR 90 2 Kidney damage with mild decrease in GFR 60-89 3 Moderate decrease in GFR 30-59 4 Severe decrease in GFR 15-29 5 Kidney failure <15 (or dialysis) 17 Specific serologic response to B. burgdorferi infection is not detected, but cannot rule out early infection during which low or undetectable antibody levels to B. burgdorferi may be present. If clinically indicated, a new serum specimen should be submitted in 7-14 days. ADDITIONAL INFORMATION CDC criteria require >=5 bands for IgG or >=2 bands for IgM for the Immunoblot to be considered positive. Bands (e.g.,p41) may be detected in patients without Lyme disease, and patterns not meeting the CDC criteria should be interpreted with caution. Immunoblot should be ordered only on specimens that are positive or equivocal by a FDA-licensed Lyme disease antibody screening test (e.g., EIA). Test Performed by: [address] [address] 18 [id number] Acute inflammation: >10.00 20 Cancelled due to duplicate test on this order Test Performed by: [address] [address] 21 REFERENCE VALUE <=1.0 (Negative) 22 REFERENCE VALUE <20.0 (Negative) 23 Tests for antibodies to dsDNA and GRZEGORZ antigens are not performed automatically unless the TRINI result is > or= 3.0 U. Studies performed at [facility] indicate that positive TRINI results <3.0 U are rarely accompanied by positive second order tests. Test Performed by: [address] [address] 24 Therapeutic target for the treatment of diabetes Mellitus patients is <7% HBA1C, and in selective patients <6.0%.Please refer to [place] Diabetes Association Diabetic care guidelines for further information. Procedures Description No Information Encounters Type Date Location Provider CPT E/M Dx Office Visit 01/05/2018 8:30a [place] [address] F41.9 Z23 Office Visit 11/25/2017 10:00a [place] [address] F41.9 Office Visit 11/11/2017 2:45p [place] [address] F41.9 J45.998 Office Visit 11/04/2017 8:00a [place] [address] Z00.00 E10.9 Z23 J45.998 F32.89 Z11.1 Office Visit 10/03/2017 3:45p [place] [address] R41.840 E10.9 Office Visit 03/12/2017 3:00p Main Office LAKSHMI Pool-C 85753 L50.8 Office Visit 02/04/2017 3:15p Main Office LAKSHMI Pool[facility]C 99068 Z00.00 Office Visit 01/06/2017 2:15p Main Office LAKSHMI Pool-C 37469 E10.9 R41.840 J45.998 Plan of Care 01/06/2018 - Kerri Mack NPJ45.998 Other asthmaComments:No acute concerns today.O2 sat 100%. Also evaluated by Zoë adding a steroid inhaler, but we will defer unless symptoms worsen or she plans to be around triggersEducated on new/worsening symptoms and when to call/return or seek immediate medical attentionPatient stated understanding and agrees to plan
--- OUTSIDE RECORDS SUMMARY | 2018-01-29 20:12 | XMS REPORT ---
:1990 External Reference #:[id number] Author Organization [facility] Address [address] [place] [address] Phone [phone] Care Team Providers Name Role Phone Kerri Mack NP Care Team Information Medical Services Coordinator Unavailable Payers Type Date Identification Numbers Payment Provider Subscriber Commercial Effective: Policy Number: [employer] Sarah Rome 2016 [id number] Group Name: [employer] [address] [address] PayID: [id number] [place] [address] Problems Description No Information Family History Date Family Member(s) Problem(s) Comments Father trach and feeding tube Father Cancer, Throat In remission Mother Osteoporosis Paternal Grandfather due to MT () - in 50s Paternal Grandmother due [...] Home is smoke-free Occupation Pediatric PT in [employer] Cigarette Use Never Smoked Cigarettes Recreational [...] Form Strength Qnty SIG Indications Ordering Provider Proair HFA 11/11 Active Aerosol 108(90Bas 8.500 2 puffs as J45.998 e) gm needed every 4 Shortle, mcg/Act to 6 hrs. SCHOOL SPEECH THERAPIST Lexapro 11/11 Active Tablets 10mg 30tab 1/2 tab by F41.9 s mouth daily for R. Storm, one week. then [employer] [facility]-C 1 tab by mouth daily Epipen 2-Ti 02/04 Active Solution 0.3mg/0.3 2Pack use as directed Auto-Inject ML LAKSHMI Her-C Epinephrine 02/04 Active Solution 0.3mg/0.3 2unit inject at onset Auto-Inject ML s of allergic Taina reaction, then [employer] [facility]-C go to the er Levemir 01/10 Active Solution 100Unit/M 30ml inject 15 units touch Pen-Inject L qd LAKSHMI Her-Alisia Adderall XR 01/06 Active Caps ER 30mg 30cap 1 by mouth 24HR s daily for add R. Storm, [employer]-C Adderall XR 01/06 Active Caps ER 5mg 30cap 1 by mouth 24HR s every day for R. Storm, adhd LAKSHMI-C Zyrtec 01/06 Active Capsules 10mg 1 po qd Allergy LIYAH HerP-C Fluticasone 01/06 Active Suspension 50mcg/Act 48gm 2 sprays each nostril daily LAKSHMI Her-Alisia Albuterol 01/06 Active Nebulizer (2.5mg/3M 75uni inhale the L) 0.083% ts contents of 1 Taina, vial via [employer]-C nebulizer every 4 to 6 hours as needed for wheezing Novolog 01/06 Active Solution 100Unit/M 1box use per carb Pen-Inject L ratio 1unit for Taina, 11 grams [employer]-C correction factor under the skin three times a day per sliding scale. Singulair 01/06 Active Tablets 10mg 30tab 1 by mouth s every day Shortle, SCHOOL SPEECH THERAPIST Epiduo Forte 01/06 Active Gel 0.3-2.5% 45gm apply once daily to skin Taina [facility] Acticlate 01/06 Active Tablets 75mg 30tab 1 tab by mouth s every day LOUIE Mack Ranitidine 03/12 Hx Tablets 150mg 60tab take one tablet L50.8 Joanna HCL s by mouth twice Taina, - a day as [employer]C 10/03 directed for acid reflux Trazodone 01/10 Hx Tablets 50mg 60tab take one to two Joanna HCL s tablets by Taina, - mouth at [facility] 01/05 bedtime Levemir 01/10 Hx Solution 100Unit/M inject Joanna Flex Pen-Inject L subcutaneously Taina, - 15 units daily [facility] 01/10 Breo Ellipta 01/06 Hx Aerosol 200-25mcg 60uni inhale 1 puff /Inh ts by mouth every Taina, - day - rinse [employer]-C 10/03 mouth after Levemir 01/06 Hx Solution 100Unit/M 15ml 25 units in at L night Taina, - [employer]-C 01/10 Trazodone 01/06 Hx Tablets 100mg Joanna HCL Taina, - [employer]-C 01/10 Medications Administered in Office Medication Date Status Form Strength Qnty SIG Indications Ordering Provider TB,Intradermal Administered Injection Kerri (PPD, Mantoux) 018 LOUIE Mack Immunizations CPT Code Status Date Vaccine Lot # [id number] Given 01/05/2018 MMR (Measles,Mumps,Rubella) [id number] Given 12/02/2017 MMR (Measles,Mumps,Rubella) [id number] Given 08/01/2017 Influenza Virus Vaccine, Quadrivalent, 3 Yr > Quad, Preserv Free 28930 Given 01/07/2016 Pneumovax 23 (PPSV23) 65+ years [...] Color Yellow Urine Appearance Clear Urine Specific Sparks 1.008 Low 1.010-1.030 Urine pH 6.0 5-9 [...] in selective patients <6.0%. Please refer to [place] [employer] diabetic care guidelines for further information. 7 REFERENCE VALUE Vaccinated: Positive (>=1.1 AI) Unvaccinated: Negative (<=0.8 AI) 8 Test Performed by: [facility] [place] [address] 9 Results suggest response to immunization or prior exposure to the virus. REFERENCE VALUE Vaccinated: Positive (>=1.1 AI) Unvaccinated: Negative (<=0.8 AI) 10 Test Performed by: [facility] [place] [address] [place] [id number] 11 [id number] [facility] 12 Unable to calculate due to low microalbumin 13 SEE RESULT BELOW Name: SARAH ROME : [address]: Edward Simpson MD Acct: [id number] Unit: [id number] AGE: 26 Location: ED Re10/14/17 SEX: F Status: DEP ER SPEC: [id number] RUBI: 10/14/17-14[address] [facility] [address]: Edward Simpson MD REQ: [id number] RECD: 10/14/17150 STATUS: MINA CERVANTES DR: Kerri Mack SCHOOL SPEECH THERAPIST _ SOURCE: URINE SPDESC: ORDERED: Urine Culture Procedure Result Reported Site Urine Culture Final 10/16/17- 818 ML No Growth (<1,000 CFU/mL) * ML - Main Lab . END OF REPORT DEPARTMENT OF PATHOLOGY, [address] [place] [address] Skip Paula M.D. Director [facility] # [id number] 14 Presumptive Positive Presumptive positive results are [...] screening test (e.g., EIA). Test Performed by: [facility] - [address] [address] 18 [id number] 19 Acute inflammation: >10.00 20 Cancelled due to duplicate test on this order Test Performed by: [facility] - [address] [address] 21 REFERENCE VALUE <=1.0 (Negative) 22 REFERENCE VALUE <20.0 (Negative) 23 Tests for antibodies to dsDNA and GRZEGORZ antigens are not performed automatically unless the TRINI result is > or= 3.0 U. Studies performed at [facility] indicate that positive TRINI results <3.0 U are rarely accompanied by positive second order tests. Test Performed by: [facility] - [address] [address] 24 Therapeutic target for the treatment of diabetes Mellitus patients is <7% HBA1C, and in selective patients <6.0%.Please refer to [place] [employer] Diabetic care guidelines for further information. Procedures Description No Information Encounters Type Date Location Provider CPT E/M Dx Office Visit 11/25/2017 10:00a [place] [address] F41.9 Office Visit 11/11/2017 2:45p [place] [address] F41.9 J45.998 Office Visit 11/04/2017 8:00a Main Office Kerri Mack, SCHOOL SPEECH THERAPIST 22156 Z00.00 E10.9 Z23 J45.998 F32.89 Z11.1 Office Visit 10/03/2017 3:45p Main Office Kerri Mack, SCHOOL SPEECH THERAPIST 71305 R41.840 E10.9 Office Visit 03/12/2017 3:00p Main Office [facility] [place] 69520 L50.8 Office Visit 02/04/2017 3:15p Main Office [facility] [place] 74994 Z00.00 Office Visit 01/06/2017 2:15p Main Office [facility] [place] 91754 E10.9 R41.840 J45.998 Plan of Care No Information Available
[2018-01-29 20:13] LABS: ABS Basophils 0 10^3/ul (0-0.2); ABS Eosinophils 0.1 10^3/ul (0-0.6); ABS Lymphocytes 2.3 10^3/ul (1.0-4.8); ABS Monocytes 0.7 10^3/ul (0-0.8); ABS Neutrophils 7.5 10^3/ul (1.5-7.7); ABS Nucleated RBC 0 10^3/ul; Hematocrit 38 % (35-47); Hemoglobin 12.9 g/dl (12.0-16.0); Lymphocyte % 21.6 % (25-47); Mean Corpuscular HGB Conc 34 g/dl (31-36); Mean Corpuscular Hemoglobin 32 pg (27-31); Mean Corpuscular Volume 93 fL (80-97); Nucleated Red Blood Cells % 0; Platelet Count 287 10^3/ul (150-450); Red Blood Count 4.01 10^6/ul (4.00-5.40); Red Cell Distribution Width 13 % (10.5-15); White Blood Count 10.7 10^3/ul (3.5-10.8)
--- NOTE | 2018-01-29 20:15 | RAD ---
Indication: Dyspnea. Shortness of breath. History of asthma. Comparison: October 18, 2011 CT chest. Technique: Upright AP 1955 hours Report: Clear lungs and pleural spaces. Negative for pneumothorax. The heart, pulmonary vasculature, and mediastinal contours are unremarkable. Unremarkable osseous structures and soft tissue contours. IMPRESSION: #. No evidence for acute intrathoracic disease.
[2018-01-29 20:29] LABS: EGFR Non-African American 91.4 (>60)
[2018-01-29] MEDS ORDERED: Famotidine IV* 10 MG/ML 2 ML (20 mg) IV SLOW PU ONE (21:32)
[2018-01-29] MEDS ORDERED: diPHENhydraMINE IV* 25 MG in NS 0.9% 50 ML* 50 ML IVPB PRN (21:41)
[2018-01-29] MEDS ORDERED: Albuterol HFA INHALER* 8 gm MDI INH PRN (21:42)
--- NOTE | 2018-01-29 21:43 | HP ---
H&P (Free Text) History and Physical: History and Physical - Critical Care Limitations in history/physical: none HPI: 27y F pmhx of asthma, DM; comes to ER after being stung by bee on hand. History of angioedema in past ~10yr back with bee sting. She used her epi pen she felt some respiratory discomfort. She comes to ER, was in active stridor and resp distress. No rash or swelling noted. She was given epi IM and then started on epi infusion. She was not intubated as distress started to improve. She was given steroids/antihistamine and started on an infusion. Currently she is in bed, no resp distress, on RA, RR 15, BP 120s, HR tachy 100s , speaking clearly. NO stridor noted on exam. No evidence of rash or swelling afterward. ED/floor Course: as above ROS: negative except for pertinent positives mentioned above. PMHx: asthma, DM PSHx: none Family History: thyroid cancer Social History: Alcohol-none, Smoking-none, Drug use-none Allergies: bee venom (anaphylaxis/laryngioedema) Home Medications: Cetirizine* [ZyrTEC 10 MG TAB*] 10 mg PO DAILY 10/14/17 [History Confirmed 01/29] DextroAMPHETamine ER (NF) 5 mg PO DAILY MDD 1 tablet 10/14/17 [History Confirmed 01/29/18] Dextroamphetamine ER (NF) 30 mg PO DAILY MDD 1 tablet 10/14/17 [History Confirmed 01/29/18] Fluticasone NASAL SPRAY 50MCG* [Flonase NASAL SPRAY 50MCG*] 2 spray BOTH NARES DAILY 10/14/17 [History Confirmed 01/29/18] Insulin Detemir (NF) [Levemir (NF)] 25 unit SUBCUT QPM 10/14/17 [History Confirmed 01/29/18] Insulin LISPRO* [HumaLOG*] 0 units SUBCUT DIRECTED 10/14/17 [History Confirmed 01/29/18] Albuterol inh POWDER (NF) [Proair Respiclick] 1 puff INH Q4HR PRN 01/29/18 [ History Confirmed 01/29/18] Escitalopram (NF) [Lexapro 10 mg (NF)] 10 mg PO DAILY 01/29/18 [History Confirmed 01/29/18] Montelukast Sodium TAB* [Singulair TAB*] 10 mg PO DAILY 01/29/18 [History Confirmed 01/29/18] Tele: sinus tachy Vitals: Vital Signs Temp Pulse 84 01/29/18 19:40 Resp 18 01/29/18 19:40 BP 141/88 01/29/18 19:40 Pulse Ox 100 01/29/18 19:40 O2/Vent: RA Infusions: epi 4mcg/min Current Medications: Albuterol (Proair Respiclick) 1 puff INH Q4HR PRN PRN Reason: SHORTNESS OF BREATH Epinephrine HCl (Epinephrine Amp 1 Mg/Ml*) 0.3 mg IM Q15M PRN PRN Reason: Allergy Symptoms Famotidine (Pepcid Iv*) 40 mg IV SLOW PU ONCE ONE Stop: 01/29/18 21:33 Famotidine (Pepcid Iv*) 20 mg IV SLOW PU BID [facility] Fluticasone Propionate (Flonase Nasal [place] 50mcg*) 2 spray BOTH NARES DAILY [facility] Sodium Chloride (Ns 0.9% 1000 Ml*) 3,000 mls @ 1,000 mls/hr IV ED ONCE ONE Stop: 01/29/18 22:39 Diphenhydramine HCl 25 mg/ (Sodium Chloride) 50.5 mls @ 101 mls/hr IVPB Q6H PRN PRN Reason: Allergy Symptoms Epinephrine HCl 1 mg/ Dextrose 251 mls @ 45.18 mls/hr IVPB Q4H [facility] Insulin Detemir (Levemir (Nf)) 25 unit SUBCUT QPM [facility] Insulin Human Lispro (Humalog*) 0 units SUBCUT ACHS VIDA; Protocol Methylprednisolone Sodium Succinate (Solu-Medrol 40 Mg) 40 mg IV Q12H [facility] Montelukast Sodium (Singulair Tab*) 10 mg PO DAILY [facility] Physical Exam: General: awake, alert, no distress, no diaphoresis Head: normocephalic, bruising around face (from playing sports) HEENT: no pallor, no icterus, moist mucous membranes; no swelling tongue or uvula Neck: soft, supple, no jvd, no stridor CVS: tachy, regular, no murmur Resp: bilateral air entry, no rhales, no wheeze, no rhonchi, no acc muscle use Abdomen: soft, nontender, nondistended, bowel sounds present Ext: pulses+, warm, no edema; right hand sting site small/no erythema Skin: areas of bruising on lower ext and face; areas of cupping on the back Neuro: awake, alert, orientedx3, moving all extremities, no gross focal deficit Labs: Laboratory Results - last 24 hr 01/29/18 01/29/18 20:07 20:07 WBC 10.7 RBC 4.01 Hgb 12.9 Hct 38 MCV 93 MCH 32 H MCHC 34 RDW 13 Plt Count 287 MPV 7.0 L Neut % (Auto) 70.2 Lymph % (Auto) 21.6 L Randall % (Auto) 6.8 Eos % (Auto) 1.0 Baso % (Auto) 0.4 Absolute Neuts (auto) 7.5 Absolute Lymphs (auto) 2.3 Absolute Monos (auto) 0.7 Absolute Eos (auto) 0.1 Absolute Basos (auto) 0 Absolute Nucleated RBC 0 Nucleated RBC % 0 Sodium 135 Potassium 3.2 L Chloride 101 Carbon Dioxide 24 Anion Gap 10 BUN 7 Creatinine 0.75 Est GFR ( Amer) 110.5 Est GFR (Non-Af Amer) 91.4 BUN/Creatinine Ratio 9.3 Glucose 235 H Calcium 8.4 L Total Bilirubin 0.30 AST 39 ALT 26 Alkaline Phosphatase 76 Total Protein 7.1 Albumin 4.0 Globulin 3.1 Albumin/Globulin Ratio 1.3 Imaging: - Assessment: 27y F pmhx of asthma, DM; comes to ER after being stung by bee on hand. History of angioedema in past ~10yr back with bee sting. She used her epi pen she felt some respiratory discomfort. She comes to ER, was in active stridor and resp distress. No rash or swelling noted. She was given epi IM and then started on epi infusion. She was not intubated as distress started to improve. She was given steroids/antihistamine and started on an infusion. Anaphylaxis/Laryngioedema 2/2 to Bee Sting Plan: Neuro- stable CVS- sinus tachy 2/2 to epi; no resp distress now. BP stable. start weaning epi infusion. Resp- no stridor noted, no swelling of tongue/oral cavity. cont steroids. cont antihistamine/h2b. start weaning epi infusion slowly. airway monitor, pulse ox continuous. ID- afebrile. wbc normal. no infectious etiology. no abx indicated. GI- clear liquid diet today, start reg diet tomorrow. h2b Renal- Cr okay. IVF as needed. Heme- hg stable. plt okay Endo- fingersticks. restart home levemir and achs humalong. expect BG to increase with steroids. Musculsk- bedrest today Wounds- none Nutrition- diabetic diet DVT prophylaxis: none GI prophylaxis: h2b Central Line: no Arterial Line: no Mitchell Cathetor: no Disposition: admit to ICU for anaphylaxis and airway monitoring Code Status: full code Total Critical Care time is 40 minutes, excluding procedures/teaching Rai Hopkins MD Deputy Commissioner (Electronically Signed)
[2018-01-29] MEDS ORDERED: Insulin Detemir (NF) 100 UNIT/ML 10 ML VIAL SUBCUT SCH (22:00)
[2018-01-29] MEDS: EPINEPHrine AMP 1 MG/ML* 1 MG in D5W 250 ML BAG* 250 ML IVPB SCH (22:04)
[2018-01-30] MEDS ORDERED: Insulin GLARGINE(*) 1 UNITS UNIT SUBCUT SCH (00:25)
[2018-01-30] MEDS: Insulin LISPRO* 1 UNITS UNIT SUBCUT SCH ×6 (00:29→23:35)
[2018-01-30] MEDS: Insulin GLARGINE(*) 1 UNITS UNIT SUBCUT SCH ×2 (01:06→17:48)
[2018-01-30] MEDS: EPINEPHrine AMP 1 MG/ML* 1 MG in D5W 250 ML BAG* 250 ML IVPB SCH ×2 (01:07→04:12)
[2018-01-30] MEDS ORDERED: Insulin LISPRO* 1 UNITS UNIT SUBCUT ONE ×3 (02:00→23:00)
[2018-01-30] MEDS ORDERED: Albuterol 2.5 MG/3 ML NEB.SOL* (0.083%) INH ONE (02:44)
[2018-01-30] MEDS ORDERED: EPINEPHrine,Rac 2.25% NEB.SOL* 0.5 ML INH ONE ×4 (03:11→20:05)
[2018-01-30] MEDS ORDERED: diPHENhydraMINE IV* 50 MG/ML 1 ml VIAL (BENADRYL) ONE (03:55)
[2018-01-30 04:18] LABS: Hematocrit 38 % (35-47); Hemoglobin 12.9 g/dl (12.0-16.0); Mean Corpuscular HGB Conc 34 g/dl (31-36); Mean Corpuscular Hemoglobin 32 pg (27-31); Mean Corpuscular Volume 94 fL (80-97); Mean Platelet Volume 7.2 um3 (7.4-10.4); Platelet Count 332 10^3/ul (150-450); Red Blood Count 4.07 10^6/ul (4.00-5.40); Red Cell Distribution Width 13 % (10.5-15); White Blood Count 16.2 10^3/ul (3.5-10.8)
[2018-01-30 04:40] LABS: EGFR Non-African American 59.3 (>60)
[2018-01-30] MEDS: KCL premix 10MEQ/50 ML x 3 RUNS IV SCH ×2 (05:48→11:38)
[2018-01-30] MEDS ORDERED: EPINEPHRINE 1 MG/ML 1 ML VIAL IM PRN (06:03)
[2018-01-30] MEDS ORDERED: NS 0.9% 1000 ML* 1,000 ML IV SCH ×2 (06:15→09:30)
[2018-01-30] MEDS: NS 0.9% IVPB SCH ×3 (06:25→22:40)
[2018-01-30] MEDS: EPINEPHRINE AMP IVPB SCH ×3 (06:25→22:40)
[2018-01-30] MEDS: Famotidine IV* 10 MG/ML 2 ML (20 mg) IV SLOW PU SCH ×2 (09:00→22:37)
[2018-01-30] MEDS ORDERED: methylPREDNISolone SOD 40 MG* 1 ML VIAL IV SCH (09:00)
--- NOTE | 2018-01-30 09:45 | PN ---
Progress Note - Progress Note Date of Service: 01/30/18 Note: Progress Note - Critical Care 24 hour events: -overnight epi turned down to 3mcg/min but developed stridor again -on epi 8 now; awake/alert, no distress, no itching in throat or dificulty swallowing/breathing -wants to move around -start on IVF overnight; KCL running. Tele: nsr Vitals: Vital Signs Temp 98.1 F 01/30/18 07:35 Pulse 79 01/30/18 09:01 Resp 23 01/30/18 09:30 BP 164/89 01/30/18 09:30 Pulse Ox 90 01/30/18 09:01 Intake & Output 01/29/18 01/30/18 01/30/18 18:59 06:59 18:59 Intake Total 869 Output Total 600 Balance 269 Weight 155 lb 6.814 oz Intake: Medicated IV 469 CC - Epinephrine 469 Oral 400 Output: Urine 600 O2/Vent: RA Infusions: epi 8mcg/min Current Medications: Albuterol (Ventolin Hfa Inhaler*) 1 puff INH Q4H PRN PRN Reason: SHORTNESS OF BREATH Albuterol (Ventolin 2.5 Mg/3 Ml Neb.Brittany*) 2.5 mg INH Q4H PRN PRN Reason: SOB/WHEEZING Diphenhydramine HCl (Benadryl Iv*) 25 mg IV Q6H PRN PRN Reason: ALLERGY SYMPTOMS Epinephrine HCl (Adrenalin 1 Mg/Ml) 0.3 mg IM Q15M PRN PRN Reason: Allergy Symptoms Famotidine (Pepcid Iv*) 20 mg IV SLOW PU BID [facility] Last Admin: 01/30/18 09:00 Dose: 20 mg Fluticasone Propionate (Flonase Nasal [place] 50mcg*) 2 spray BOTH NARES DAILY [facility] Epinephrine HCl 4 mg/ Sodium (Chloride) 1,004 mls @ 45.18 mls/hr IVPB Q8H [facility]; Protocol Last Admin: 01/30/18 06:25 Dose: 45.18 mls/hr Sodium Chloride (Ns 0.9% 1000 Ml*) 1,000 mls @ 50 mls/hr IV PER RATE [facility] Insulin Glargine (Lantus(*)) 25 units SUBCUT 1800 VIDA Last Admin: 01/30/18 01:06 Dose: 25 units Insulin Human Lispro (Humalog*) 0 units SUBCUT ACHS [facility]; Protocol Last Admin: 01/30/18 09:00 Dose: 1 units Methylprednisolone Sodium Succinate (Solu-Medrol 40 Mg) 40 mg IV Q12H [facility] Last Admin: 01/30/18 09:00 Dose: 40 mg Montelukast Sodium (Singulair Tab*) 10 mg PO DAILY [facility] Physical Exam: General: awake, alert, no distress, no diaphoresis Head: normocephalic, bruising around face (from playing sports) HEENT: no pallor, no icterus, moist mucous membranes; no swelling tongue or uvula Neck: soft, supple, no jvd, no stridor CVS: tachy, regular, no murmur Resp: bilateral air entry, no rhales, no wheeze, no rhonchi, no acc muscle use Abdomen: soft, nontender, nondistended, bowel sounds present Ext: pulses+, warm, no edema; right hand sting site small/no erythema Skin: areas of bruising on lower ext and face; areas of cupping on the back Neuro: awake, alert, orientedx3, moving all extremities, no gross focal deficit Labs: Laboratory Results - last 24 hr 01/29/18 01/29/18 01/30/18 20:07 20:07 00:11 WBC 10.7 RBC 4.01 Hgb 12.9 Hct 38 MCV 93 MCH 32 H MCHC 34 RDW 13 Plt Count 287 MPV 7.0 L Neut % (Auto) 70.2 Lymph % (Auto) 21.6 L Martin % (Auto) 6.8 Eos % (Auto) 1.0 Baso % (Auto) 0.4 Absolute Neuts (auto) 7.5 Absolute Lymphs (auto) 2.3 Absolute Monos (auto) 0.7 Absolute Eos (auto) 0.1 Absolute Basos (auto) 0 Absolute Nucleated RBC 0 Nucleated RBC % 0 Sodium 135 Potassium 3.2 L Chloride 101 Carbon Dioxide 24 Anion Gap 10 BUN 7 Creatinine 0.75 Est GFR ( Amer) 110.5 Est GFR (Non-Af Amer) 91.4 BUN/Creatinine Ratio 9.3 Glucose 235 H POC Glucose (mg/dL) 281 H Calcium 8.4 L Total Bilirubin 0.30 AST 39 ALT 26 Alkaline Phosphatase 76 Total Protein 7.1 Albumin 4.0 Globulin 3.1 Albumin/Globulin Ratio 1.3 01/30/18 01/30/18 01/30/18 01:12 04:05 04:05 WBC 16.2 H RBC 4.07 Hgb 12.9 Hct 38 MCV 94 MCH 32 H MCHC 34 RDW 13 Plt Count 332 MPV 7.2 L Neut % (Auto) Lymph % (Auto) Martin % (Auto) Eos % (Auto) Baso % (Auto) Absolute Neuts (auto) Absolute Lymphs (auto) Absolute Monos (auto) Absolute Eos (auto) Absolute Basos (auto) Absolute Nucleated RBC Nucleated RBC % Sodium 136 Potassium 3.1 L Chloride 101 Carbon Dioxide 19 L Anion Gap 16 H BUN 14 Creatinine 1.09 H Est GFR ( Amer) 71.8 Est GFR (Non-Af Amer) 59.3 BUN/Creatinine Ratio 12.8 Glucose 253 H POC Glucose (mg/dL) 238 H Calcium 8.8 Total Bilirubin AST ALT Alkaline Phosphatase Total Protein Albumin Globulin Albumin/Globulin Ratio Imaging: - Assessment: 27y F pmhx of asthma, DM; comes to ER after being stung by bee on hand. History of angioedema in past ~10yr back with bee sting. She used her epi pen she felt some respiratory discomfort. She comes to ER, was in active stridor and resp distress. No rash or swelling noted. She was given epi IM and then started on epi infusion. She was not intubated as distress started to improve. She was given steroids/antihistamine and started on an infusion. Anaphylaxis/Laryngioedema 2/2 to Bee Sting diabetes mellitus Plan: Neuro- stable CVS- nsr. BP stable. start weaning epi infusion again now. Resp- no stridor noted, no swelling of tongue/oral cavity. will start to wean epi again. noted overnight events. increase solumedrol 40mg q8h. cont antihistamine/h2b. airway monitor, pulse ox continuous. ID- afebrile. wbc 16. may be 2/2 to steroids. no infectious etiology. no abx indicated at this time GI- start PO diet. h2b Renal- Cr 1.1; start NS infusion. Replete K as needed. Heme- hg stable. plt okay Endo- fingersticks. lantus and achs humalong. expect BG to increase with steroids. Musculsk- oob to chair Wounds- none Nutrition- diabetic diet DVT prophylaxis: none GI prophylaxis: h2b Central Line: no Arterial Line: no Mitchell Cathetor: no Disposition: ICU for anaphylaxis and airway monitoring Code Status: full code Total Critical Care time is 35 minutes, excluding procedures/teaching Rai Hopkins MD Mgmt Consultant (Electronically Signed)
[2018-01-30] MEDS: Montelukast Sodium TAB* 10 MG PO SCH (10:39)
[2018-01-30] MEDS ORDERED: Potassium Chlor TAB* 20 MEQ TAB.ER PO ONE (10:57)
[2018-01-30] MEDS: Citalopram TAB* 20 MG PO SCH (11:03)
[2018-01-30] MEDS: Fluticasone NASAL SPRAY 50MCG* 16 gm SPRAY BTL BOTH NARES SCH (11:04)
[2018-01-30] MEDS: Potassium Chloride LIQUID* 20 MEQ PACKET PO SCH ×2 (11:54→22:36)
[2018-01-30] MEDS: methylPREDNISolone SOD 40 MG* 1 ML VIAL IV SCH (17:09)
[2018-01-30] MEDS: Albuterol 2.5 MG/3 ML NEB.SOL* (0.083%) INH PRN (19:27)
[2018-01-30] MEDS ORDERED: EPINEPHrine,Rac 2.25% NEB.SOL* 0.5 ML ONE (20:02)
--- NOTE | 2018-01-30 20:25 | PN ---
Progress Note - Progress Note Date of Service: 01/30/18 Note: patient weaned off epi infusion, walking around the unit, asymptomatic past few hours. sudden resp distress, audible wheezing from bilateral lungs noted given albuterol inh, improved then short time after resp distress again but now with audible insp and exp stridor exam demonstyrated minimal wheeze from lungs but more upper airway exp and insp stridor given inh racemic epi, improved restarted epi infusion at 4 currently on RA, HR 90-100 sinus, BP stable speaking clearly now, laughing. will also give terbutaline will try to wean down epi slowly again overnight. alb q4h already on IV steroids, continue. pulmicort inh CC time 30 min Rai Hopkins Fitness Consultant
[2018-01-30] MEDS: Budesonide NEB* 0.5 MG/2 ML NEB.SOLN INH SCH (21:05)
[2018-01-30] MEDS: diPHENhydraMINE IV* 50 MG/ML 1 ml VIAL (BENADRYL) IV PRN (22:37)
[2018-01-31] MEDS: methylPREDNISolone SOD 40 MG* 1 ML VIAL IV SCH ×3 (01:26→18:08)
[2018-01-31] MEDS ORDERED: EPINEPHrine,Rac 2.25% NEB.SOL* 0.5 ML ONE (03:26)
[2018-01-31] MEDS ORDERED: EPINEPHrine,Rac 2.25% NEB.SOL* 0.5 ML INH PRN (04:11)
[2018-01-31 05:17] LABS: Hematocrit 34 % (35-47); Hemoglobin 11.7 g/dl (12.0-16.0); Mean Corpuscular HGB Conc 34 g/dl (31-36); Mean Corpuscular Hemoglobin 32 pg (27-31); Mean Corpuscular Volume 94 fL (80-97); Mean Platelet Volume 7.4 um3 (7.4-10.4); Platelet Count 234 10^3/ul (150-450); Red Blood Count 3.68 10^6/ul (4.00-5.40); Red Cell Distribution Width 13 % (10.5-15); White Blood Count 22.8 10^3/ul (3.5-10.8)
--- NOTE | 2018-01-31 06:34 | PN ---
Progress Note - Progress Note Date of Service: 01/31/18 Note: Nursing called this AM ~30 minutes after being able to put her epinephrine GTT on hold with report of rapid return of SOB & stridor. Upon evaluation, she is in bed in tripod position with very poor aeration B and audible stridor. Restart epinephrine GTT, give racemic epinephrine nebulized treatment. Reassessment after ~10minutes revealed Sarah lying comfortably in bed without respiratory distress or stridor. Aeration had improved to fair to good. Epinephrine GTT was at 6. Her HR was 90s and systolic low 100s. Nursing advised to titrate the epinephrine GTT down if either 1) her HR increased to greater than 110 or 2) her systolic increased to greater than 140. Regardless, the epinephrine GTT should not be titrated to less than 3 without my knowledge.
[2018-01-31] MEDS: Albuterol 2.5 MG/3 ML NEB.SOL* (0.083%) INH PRN (06:49)
[2018-01-31] MEDS: Budesonide NEB* 0.5 MG/2 ML NEB.SOLN INH SCH ×2 (06:50→19:38)
[2018-01-31] MEDS: NS 0.9% IVPB SCH ×2 (07:00→17:28)
[2018-01-31] MEDS: EPINEPHRINE AMP IVPB SCH ×2 (07:00→17:28)
[2018-01-31] MEDS: Citalopram TAB* 20 MG PO SCH (08:20)
[2018-01-31] MEDS: Famotidine IV* 10 MG/ML 2 ML (20 mg) IV SLOW PU SCH ×2 (08:20→20:59)
[2018-01-31] MEDS: Montelukast Sodium TAB* 10 MG PO SCH (08:20)
[2018-01-31] MEDS: Insulin LISPRO* 1 UNITS UNIT SUBCUT SCH ×4 (08:23→21:06)
[2018-01-31] MEDS: Fluticasone NASAL SPRAY 50MCG* 16 gm SPRAY BTL BOTH NARES SCH (08:34)
--- NOTE | 2018-01-31 11:08 | PN ---
Progress Note - Progress Note Date of Service: 01/31/18 Note: Progress Note - Critical Care 24 hour events: -titrated off epi yesterday, remained off for 12 hours, walked unit, then again 2 episodes of stridor; iniitally had wheezing from lower lungs, improved with albuterol, then developed insp/exp upper airway stridor, improved with racemic epi, started back on epi infusion. then at 3am, again distress and stridor, improved with racemic. -currently in bed, feels well, alert, no distress. no wheezing. on epi 3, down to 2 now; RA, sats uppe r90s, rr <20 -no swelling in mouth, no itchyness. -afebrile Tele: nsr Vitals: Vital Signs Temp 98.6 F 01/31/18 07:30 Pulse 90 01/31/18 10:49 Resp 22 01/31/18 10:49 BP 95/76 01/31/18 10:49 Pulse Ox 93 01/31/18 10:49 Intake & Output 01/30/18 01/31/18 01/31/18 18:59 06:59 18:59 Intake Total 1926 946.3 120 Output Total 0 0 0 Balance 1926 946.3 120 Weight 71.5 kg Intake: IV Fluids 662 NS (0.9%) 662 Medicated IV 886 284.3 CC - Epinephrine 886 284.3 Oral 1040 120 Output: Urine 0 0 0 Other: Estimated Void Medium # Voids 1 1 O2/Vent: RA Infusions: epi 2mcg/min Current Medications: Albuterol (Ventolin Hfa Inhaler*) 1 puff INH Q4H PRN PRN Reason: SHORTNESS OF BREATH Albuterol (Ventolin 2.5 Mg/3 Ml Neb.Brittany*) 2.5 mg INH Q4H PRN PRN Reason: SOB/WHEEZING Last Admin: 01/31/18 06:49 Dose: 2.5 mg Budesonide (Pulmicort Neb*) 0.5 mg INH RT.BID [facility] Last Admin: 01/31/18 06:50 Dose: 0.5 mg Citalopram Hydrobromide (Celexa Tab*) 10 mg PO DAILY [facility] Last Admin: 01/31/18 08:20 Dose: 10 mg Diphenhydramine HCl (Benadryl Iv*) 25 mg IV Q6H PRN PRN Reason: ALLERGY SYMPTOMS Last Admin: 01/30/18 22:37 Dose: 25 mg Epinephrine HCl (Adrenalin 1 Mg/Ml) 0.3 mg IM Q15M PRN PRN Reason: Allergy Symptoms Epinephrine HCl (Epinephrine,Rac 2.25% Neb.Brittany*) 0.5 ml INH Q4H PRN PRN Reason: stridor Famotidine (Pepcid Iv*) 20 mg IV SLOW PU BID [facility] Last Admin: 01/31/18 08:20 Dose: 20 mg Fluticasone Propionate (Flonase Nasal [place] 50mcg*) 2 spray BOTH NARES DAILY [facility] Last Admin: 01/31/18 08:34 Dose: 2 spray Epinephrine HCl 4 mg/ Sodium (Chloride) 1,004 mls @ 45.18 mls/hr IVPB Q8H [facility]; Protocol Last Admin: 01/30/18 22:40 Dose: 45.18 mls/hr Insulin Glargine (Lantus(*)) 25 units SUBCUT 1800 [facility] Last Admin: 01/30/18 17:48 Dose: 25 units Insulin Human Lispro (Humalog*) 0 units SUBCUT ACHS [facility]; Protocol Methylprednisolone Sodium Succinate (Solu-Medrol 40 Mg) 40 mg IV Q8H [facility] Last Admin: 01/31/18 08:20 Dose: 40 mg Montelukast Sodium (Singulair Tab*) 10 mg PO DAILY [facility] Last Admin: 01/31/18 08:20 Dose: 10 mg Physical Exam: General: awake, alert, no distress, no diaphoresis Head: normocephalic, bruising around face (from playing sports) HEENT: no pallor, no icterus, moist mucous membranes; no swelling tongue or uvula Neck: soft, supple, no jvd, no stridor CVS: normal rate, regular, no murmur Resp: bilateral air entry, no rhales, no wheeze, no rhonchi, no acc muscle use Abdomen: soft, nontender, nondistended, bowel sounds present Ext: pulses+, warm, no edema; right hand sting site small/no erythema Skin: areas of bruising on lower ext and face; areas of cupping on the back Neuro: awake, alert, orientedx3, moving all extremities, no gross focal deficit Labs: Laboratory Results - last 24 hr 01/30/18 01/30/18 01/30/18 08:20 11:59 17:32 WBC RBC Hgb Hct MCV MCH MCHC RDW Plt Count MPV Sodium Potassium Chloride Carbon Dioxide Anion Gap BUN Creatinine Est GFR ( Amer) Est GFR (Non-Af Amer) BUN/Creatinine Ratio Glucose POC Glucose (mg/dL) 162 H 191 H 95 Calcium 01/30/18 01/31/18 01/31/18 22:18 05:05 05:05 WBC 22.8 H RBC 3.68 L Hgb 11.7 L Hct 34 L MCV 94 MCH 32 H MCHC 34 RDW 13 Plt Count 234 MPV 7.4 Sodium 135 Potassium 4.4 Chloride 106 Carbon Dioxide 23 Anion Gap 6 BUN 13 Creatinine 0.61 Est GFR ( Amer) 140.3 Est GFR (Non-Af Amer) 116.0 BUN/Creatinine Ratio 21.3 H Glucose 168 H POC Glucose (mg/dL) 221 H Calcium 9.1 01/31/18 07:59 WBC RBC Hgb Hct MCV MCH MCHC RDW Plt Count MPV Sodium Potassium Chloride Carbon Dioxide Anion Gap BUN Creatinine Est GFR ( Amer) Est GFR (Non-Af Amer) BUN/Creatinine Ratio Glucose POC Glucose (mg/dL) 179 H Calcium Imaging: - Assessment: 27y F pmhx of asthma, DM; comes to ER after being stung by bee on hand. History of angioedema in past ~10yr back with bee sting. She used her epi pen she felt some respiratory discomfort. She comes to ER, was in active stridor and resp distress. No rash or swelling noted. She was given epi IM and then started on epi infusion. She was not intubated as distress started to improve. She was given steroids/antihistamine and started on an infusion. Anaphylaxis/Laryngioedema 2/2 to Bee Sting recurrent stridor, wheezing diabetes mellitus Plan: Neuro- stable CVS- nsr. BP stable. on epi, slower weaning now, keep on epi 1 for next few hours. Resp- no stridor noted now but recurent episodes obvernight. cont epi and slow wean. no edema noted. cont bronchodilators/steroids. wbc elevated but no hypoxia , no symptoms/signs of active infection. Will discuss with ENT if eval of upper airway needed. airway monitor, pulse ox continuous. my thoughts are possible VC spasm/dysfunction, given her being female/young. doesnt appear anxious though otherwise. ID- afebrile. wbc 16. may be 2/2 to steroids. no infectious etiology. no abx indicated at this time GI- PO diet. h2b Renal- Cr 1; off IVF. Heme- hg stable. plt okay Endo- fingersticks. lantus and achs humalong. expect BG to increase with steroids. Musculsk- oob to chair Wounds- none Nutrition- diabetic diet DVT prophylaxis: none GI prophylaxis: h2b Central Line: no Arterial Line: no Mitchell Cathetor: no Disposition: ICU for recurrent stridor/respiratory distress Code Status: full code Total Critical Care time is 35 minutes, excluding procedures/teaching Rai Hopkins MD Manager Data Warehousing (Electronically Signed)
[2018-01-31] MEDS ORDERED: PHENTOLAMINE 5 MG INJ ONE (13:24)
--- NOTE | 2018-01-31 14:15 | CONS ---
CONSULTATION REPORT: DATE OF CONSULT: 01/31/18 CONSULT REQUESTED BY: ICU. HISTORY OF PRESENT ILLNESS: This pleasant 27-year-old female with history of anaphylaxis presented to the ER with possible anaphylactic type reaction. At that time, she had symptoms of stridor. I was asked to see the patient after 2 days. At the time she was having no evidence of airway obstruction at the time of the visit. Her voice is good. She had no complains at this time. PHYSICAL EXAM: Ear canals are normal. Nasal cavity examination showed some mild mucosal inflammation. She has significant ecchymosis from trauma. Neck examination showed no crepitus, no lymphadenopathy. ENDOSCOPY: Endoscopy was then carried out through right naris. Flexible endoscopy was carried out to the tongue base, epiglottis, pharyngeal examination all essentially normal with good motility. The subglottic area was clean. CLINICAL IMPRESSION: The patient with what appears to be stridor, may be functional. I see no evidence of any significant airway obstruction or edema. I suspect the patient should be able to go home, perhaps be on the tapering dose of oral steroids. Happy to follow the patient as needed as an outpatient basis. [id number]/CPS #: [id number] MTDD
[2018-01-31] MEDS: Insulin GLARGINE(*) 1 UNITS UNIT SUBCUT SCH (18:07)
[2018-01-31] MEDS ORDERED: Saline NASAL SPRAY 0.65%* BTL BOTH NARES PRN (20:52)
[2018-01-31] MEDS: diPHENhydraMINE IV* 50 MG/ML 1 ml VIAL (BENADRYL) IV PRN (20:59)
[2018-02-01] MEDS: EPINEPHRINE AMP IVPB SCH ×2 (01:08→07:21)
[2018-02-01] MEDS: NS 0.9% IVPB SCH ×2 (01:08→07:21)
[2018-02-01] MEDS: methylPREDNISolone SOD 40 MG* 1 ML VIAL IV SCH ×2 (01:41→09:09)
[2018-02-01 05:51] LABS: Hematocrit 37 % (35-47); Hemoglobin 12.6 g/dl (12.0-16.0); Mean Corpuscular HGB Conc 34 g/dl (31-36); Mean Corpuscular Hemoglobin 32 pg (27-31); Mean Corpuscular Volume 94 fL (80-97); Mean Platelet Volume 7.5 um3 (7.4-10.4); Platelet Count 253 10^3/ul (150-450); Red Blood Count 3.91 10^6/ul (4.00-5.40); Red Cell Distribution Width 13 % (10.5-15); White Blood Count 17.6 10^3/ul (3.5-10.8)
[2018-02-01 05:51] LABS: EGFR Non-African American 100.6 (>60)
[2018-02-01] MEDS: Budesonide NEB* 0.5 MG/2 ML NEB.SOLN INH SCH (07:19)
--- NOTE | 2018-02-01 09:03 | PN ---
Progress Note - Progress Note Date of Service: 02/01/18 Note: Progress Note - Critical Care 24 hour events: -has been off epi for just about 24 hours; no further wheezing/stridor; no cough /cp/sob; afebrile. feels well. eager to go home. -ENT asked to scope her; no noted VC dysfunction but was asymptomatic at that time Tele: nsr Vitals: Vital Signs Temp 98.4 F 02/01/18 07:17 Pulse 65 02/01/18 08:01 Resp 15 02/01/18 08:01 BP 109/79 02/01/18 08:00 Pulse Ox 95 02/01/18 08:00 Intake & Output 01/31/18 02/01/18 02/01/18 18:59 06:59 18:59 Intake Total 804 0 Output Total 0 Balance 804 0 Weight 70 kg Intake: Medicated IV 264 CC - Epinephrine 264 Oral 540 0 Output: Urine 0 Other: Estimated Void Medium Date of Last Bowel 02/01/18 Movement # Bowel Movements 1 Estimated Stool Amount Medium # Voids 1 O2/Vent: RA Infusions: heplock Current Medications Albuterol (Ventolin Hfa Inhaler*) 1 puff INH Q4H PRN PRN Reason: SHORTNESS OF BREATH Albuterol (Ventolin 2.5 Mg/3 Ml Neb.Brittany*) 2.5 mg INH Q4H PRN PRN Reason: SOB/WHEEZING Last Admin: 01/31/18 06:49 Dose: 2.5 mg Budesonide (Pulmicort Neb*) 0.5 mg INH RT.BID [facility] Last Admin: 02/01/18 07:19 Dose: 0.5 mg Citalopram Hydrobromide (Celexa Tab*) 10 mg PO DAILY [facility] Last Admin: 01/31/18 08:20 Dose: 10 mg Diphenhydramine HCl (Benadryl Iv*) 25 mg IV Q6H PRN PRN Reason: ALLERGY SYMPTOMS Last Admin: 01/31/18 20:59 Dose: 25 mg Epinephrine HCl (Adrenalin 1 Mg/Ml) 0.3 mg IM Q15M PRN PRN Reason: Allergy Symptoms Epinephrine HCl (Epinephrine,Rac 2.25% Neb.Brittany*) 0.5 ml INH Q4H PRN PRN Reason: stridor Famotidine (Pepcid Iv*) 20 mg IV SLOW PU BID [facility] Last Admin: 01/31/18 20:59 Dose: 20 mg Fluticasone Propionate (Flonase Nasal [place] 50mcg*) 2 spray BOTH NARES DAILY [facility] Last Admin: 01/31/18 08:34 Dose: 2 spray Epinephrine HCl 4 mg/ Sodium (Chloride) 1,004 mls @ 45.18 mls/hr IVPB Q8H [facility]; Protocol Last Admin: 02/01/18 07:21 Dose: Not Given Insulin Glargine (Lantus(*)) 25 units SUBCUT 1800 [facility] Last Admin: 01/31/18 18:07 Dose: 25 units Insulin Human Lispro (Humalog*) 0 units SUBCUT ACHS [facility]; Protocol Last Admin: 01/31/18 21:06 Dose: Not Given Methylprednisolone Sodium Succinate (Solu-Medrol 40 Mg) 40 mg IV Q8H [facility] Last Admin: 02/01/18 01:41 Dose: 40 mg Montelukast Sodium (Singulair Tab*) 10 mg PO DAILY [facility] Last Admin: 01/31/18 08:20 Dose: 10 mg Sodium Chloride (Sodium Chloride 0.65% Nasal [place]*) 2 spray BOTH NARES Q6H PRN PRN Reason: NASAL DRYNESS/STUFFINESS Last Admin: 01/31/18 21:18 Dose: 2 spray Physical Exam: General: awake, alert, no distress, no diaphoresis Head: normocephalic, bruising around face (from playing sports) HEENT: no pallor, no icterus, moist mucous membranes; no swelling tongue or uvula Neck: soft, supple, no jvd, no stridor CVS: normal rate, regular, no murmur Resp: bilateral air entry, no rhales, no wheeze, no rhonchi, no acc muscle use Abdomen: soft, nontender, nondistended, bowel sounds present Ext: pulses+, warm, no edema; right hand sting site small/no erythema Skin: areas of bruising on lower ext and face; areas of cupping on the back Neuro: awake, alert, orientedx3, moving all extremities, no gross focal deficit Labs: Laboratory Results - last 24 hr 01/31/18 01/31/18 01/31/18 12:20 17:44 20:53 WBC RBC Hgb Hct MCV MCH MCHC RDW Plt Count MPV Sodium Potassium Chloride Carbon Dioxide Anion Gap BUN Creatinine Est GFR ( Amer) Est GFR (Non-Af Amer) BUN/Creatinine Ratio Glucose POC Glucose (mg/dL) 139 H 114 H 102 H Calcium 02/01/18 02/01/18 02/01/18 04:58 05:40 07:31 WBC 17.6 H RBC 3.91 L Hgb 12.6 Hct 37 MCV 94 MCH 32 H MCHC 34 RDW 13 Plt Count 253 MPV 7.5 Sodium 134 L Potassium 4.4 Chloride 103 Carbon Dioxide 24 Anion Gap 7 BUN 19 Creatinine 0.69 Est GFR ( Amer) 121.7 Est GFR (Non-Af Amer) 100.6 BUN/Creatinine Ratio 27.5 H Glucose 118 H POC Glucose (mg/dL) 79 Calcium 9.1 Imaging: - Assessment: 27y F pmhx of asthma, DM; comes to ER after being stung by bee on hand. History of angioedema in past ~10yr back with bee sting. She used her epi pen she felt some respiratory discomfort. She comes to ER, was in active stridor and resp distress. No rash or swelling noted. She was given epi IM and then started on epi infusion. She was not intubated as distress started to improve. She was given steroids/antihistamine and started on an infusion. Anaphylaxis/Laryngioedema 2/2 to Bee Sting recurrent stridor, wheezing diabetes mellitus Plan: Neuro- stable CVS- nsr. BP stable. off epi. Resp- no further stridor/wheezing/resp distress issues. on RA. off epi infusion. albuterol prn only. ENT noted no VC dysfunction/structural problem. ? supratentorial issue? pretty calm now. discussed with patient, will discharge with steroid taper over next 3-5 days. Recommend followup with PCP in [place]; will given ham rolling machine operator number here also if she would like to see Dr Tamez or be referred to another. ID- afebrile. wbc 22->17. may be 2/2 to steroids. no infectious etiology. no abx indicated GI- PO diet. h2b Renal- Cr normal. making urine.; off IVF. Heme- hg stable. plt okay Endo- fingersticks. lantus and achs humalong. expect BG to increase with steroids. Musculsk- oob to chair, amublating Wounds- none Nutrition- diabetic diet DVT prophylaxis: none GI prophylaxis: h2b Central Line: no Arterial Line: no Mitchell Cathetor: no Disposition: stable for discharge home Code Status: full code Rai Hopkins MD Mold Presser (Electronically Signed)
[2018-02-01] MEDS: Insulin LISPRO* 1 UNITS UNIT SUBCUT SCH (09:09)
[2018-02-01] MEDS: Famotidine IV* 10 MG/ML 2 ML (20 mg) IV SLOW PU SCH (09:09)
[2018-02-01] MEDS: Citalopram TAB* 20 MG PO SCH (09:10)
[2018-02-01] MEDS: Fluticasone NASAL SPRAY 50MCG* 16 gm SPRAY BTL BOTH NARES SCH (09:10)
[2018-02-01] MEDS: Montelukast Sodium TAB* 10 MG PO SCH (09:10)
[2018-02-01 10:16] VITALS: BP 120/79
--- NOTE | 2018-02-01 10:26 | DS ---
Discharge Summary Patient Name: Sarah Camacho Date of Admission: 01/29/2018 Date of Discharge: 02/01/2018 Attending: Dr Rai Hopkins (waffle machine operator) Consultants: Dr Real Alvarez (ENT) Admitting Diagnoses: 1) Anaphylaxis secondary to Bee Sting Discharge Diagnoses: 1) Anaphylaxis secondary to Bee Sting 2) Asthma Exaccerbation HPI/Hospital Course: 27y F pmhx of asthma, DM; comes to ER after being stung by bee on hand. History of angioedema in past ~10yr back with bee sting. She used her epi pen she felt some respiratory discomfort. She comes to ER, was in active stridor and resp distress. No rash or swelling noted. She was given epi IM and then started on epi infusion. She was not intubated as distress started to improve. She was given steroids/antihistamine and started on an infusion. She improved on my initial arrival no resp distress, on RA, RR 15, BP 120s, HR tachy 100s, speaking clearly. No stridor noted on exam. No evidence of rash or swelling afterward. She was admitted to the ICU for airway monitoring and weaning of epinephrine infusion, and started on RTC steroids/H2b, prn antihistamine.. She was weaned off epi infusion by the next day 01/30, did well and was walking around the ICU on RA, no distress. Since Epinephrine infusion as discontinued in the afternoon, we monitored her over the night. Toward evening of 01/30 she developed lower lung wheezing, improved with albuterol. Later one, stridor on inspiration and expiration recurred, treated with racemic epi, which improved and restarted on epi infusion. Over that night, recurrent stridor again, which improved. ENT was asked to see patient the next day. She had a direct laryngoscopy performed which did not show any structural abnormality. During 01/31 day, epi infusion was weaned off, she remained asymptomatic during the rest of 01/31 and overnight. No further wheezing/stridor , HR 80s, BP stable, no epi infusion. There was a short area of epi infiltration during 01/31, treated with phentolamine, but no tenderness or change in skin coloration occured overnight. We discussed that she would require a taper of PO prednisone, a new epi pen for home. She would followup with her PCP in [place] and Dr Tamez office number was given for an appointment , or if her PCP desires to another pulmonary physician. No indication for ENT followup at this time, but would have to reconsider if future events reoccur. She had a leukocytosis during admission which we suspect from steroids, no other source of infection and afebrile, which was decreasing already prior to discharge. She is stable for discharge home on 02/01, discussed with her, she is in agreement. Procedures/Imaging: Chest Xray Laboratory/Data: see chart Discharge Medications: Same as home medications; renewal for EpiPen 0.3mg IM PRN ; Prednisone 20mg daily x2 days, 10mg daily for 2 days, 5mg daily for 2 days taper sent to pharmacy Diet: diabetic diet Activity: as tolerated Condition upon discharge: stable Disposition: Home Code Status: full code Recommendations/Followup: followup with PCP in [place]; Pulmonary (Dr Tamez) clinic number given for followup. Total Discharge time <30minutes Rai Hopkins MD Security Guards Dispatcher (Electronically Signed)
== END 2018-02-01 10:16 | disposition home or self-care (01) | DRG 816 ==
LOC: ED 18:47 → ICU 21:32
PROVIDERS: ADMIT Internal Medicine Critical Care Medicine; ATTEND Internal Medicine Critical Care Medicine
DX: T63.441A Toxic effect of venom of bees, accidental (unintentional), initial encounter (principal); T78.2XXA Anaphylactic shock, unspecified, initial encounter; J45.901 Unspecified asthma with (acute) exacerbation; Y92.9 Unspecified place or not applicable; E11.9 Type 2 diabetes mellitus without complications; Z80.8 Family history of malignant neoplasm of other organs or systems; Z91.030 Bee allergy status; Z79.4 Long term (current) use of insulin; Z79.899 Other long term (current) drug therapy
CPT/HCPCS: 36415; 71045; 80048; 80053; 85025; 85027; 87641; 93005; 94640; 99285; A9270-GY; J0171; J1200; J2920; J2930; J3480; J7611